=== PATIENT | male | born 1970 | race Caucasian/White ===

== ENCOUNTER 2016-12-02 14:11 | Inpatient (IN) ==
[2016-12-02 15:24] LABS: Basophils % 0.2 %; Hematocrit 45.6 % (37.5-50.1); Hemoglobin 14.8 g/dL (12.9-16.9); Immature Granulocytes % 0.7 % (0-4); Lymphocytes # 0.9 K/mcL (0.6-4.6); Lymphocytes % 4.5 %; Mean Corpuscular HGB Conc 32.5 g/dL (31.6-35.5); Mean Corpuscular Hemoglobin 28.4 pg (28.0-33.3); Mean Corpuscular Volume 87.4 fL (83.0-100.0); Mean Platelet Volume 9.3 fL (9.4-12.4); Monocytes # 1.6 K/mcL (0.0-1.3); Monocytes % 7.7 %; Neutrophils # 18.3 K/mcL (1.6-8.9); Platelet Count 222 K/mcL (140-400); Red Blood Count 5.22 M/mcL (4.19-5.50); Segmented Neutrophils % 86.9 %
[2016-12-02 15:30] LABS: INR 1.3
[2016-12-02 15:37] LABS: BUN/Creatinine Ratio 10 (6-26); Blood Urea Nitrogen 12 mg/dL (8-26); Calcium 8.6 mg/dL (8.6-10.8); Carbon Dioxide 24 mEq/L (19-29); Chloride 105 mEq/L (98-109); Glucose 110 mg/dL (70-99); Osmolality,Calculated 286 (280-300); Potassium 3.7 mEq/L (3.5-4.5); Sodium 138 mEq/L (136-145); eGFR For African Americans > 60 (> 60); eGFR For Non-African Americans > 60 (> 60)
[2016-12-02] MEDS ORDERED: 0.9 % Sodium Chloride 1,000 ML IVC ONE (16:07)
[2016-12-02] MEDS ORDERED: Levofloxacin 750 MG/150 ML 750 MG/150 ML BAG IVPB ONE (16:07)
[2016-12-02 16:08] LABS: Bilirubin,Urine Negative (Negative); Blood,Urine Trace (Negative); Clarity,Urine Cloudy (Clear); Color,Urine Yellow (Yellow); Glucose,Urine (UA) Normal (Normal); Ketones,Urine Negative (Negative); Leukocyte Esterase,Urine Large (Negative); Nitrite,Urine Negative (Negative); PH,Urine 6.5 pH Units (5.0-8.0); Protein,Urine Trace mg/dL (Neg-Trace); Specific Gravity,Urine 1.023 (1.010-1.025); Urobilinogen,Urine Normal (Normal)
--- NOTE | 2016-12-02 16:10 | Emergency Department Note ---
Disposition Clinical Impression: Urinary tract infection Qualifiers: Urinary tract infection type: site unspecified Hematuria presence: without hematuria Qualified Code(s): N39.0 - Urinary tract infection, site not specified Disposition: Admitted As Inpatient Condition: Fair Referrals: NO,PCP [Primary Care Provider] - Forms: ED Satisfaction Letter Time of Disposition: 16:35 Fever HPI - General Chief Complaint: ED Fever Stated Complaint: fevers// chills// SOB x2 weeks Source: patient, family Mode of arrival: private vehicle Limitations: no limitations Nursing Notes Reviewed: Yes Vital Signs Reviewed: Yes - History of Present Illness Pt Subjective Complaint: fever Onset (ago): week(s) (2 weeks. It came for a while then went away for a couple days then came back) Context: spontaneous Associated symptoms: Reports: chills, myalgias, nausea, vomiting (Occasional) Improves with: acetaminophen Worsens with: nothing Treatments prior to arrival fever: acetaminophen - Related Data Home Medications Medication Instructions Recorded Confirmed Aspirin/Acetaminophen/Caffeine 1 - 2 tab PO Q6H PRN 12/02/16 12/02/16 [Excedrin Migraine Caplet] Naproxen Sodium [Aleve] 220 mg PO Q12H PRN 12/02/16 12/02/16 Allergies Allergy/AdvReac Type Severity Reaction Status Date / Time No Known Allergies Allergy Verified 12/02/16 16:41 All systems ED: reviewed and negative except as stated. Constitutional: Reports: fever, chills ENT ED: Denies: ear pain, throat pain, congestion Cardiovascular: Denies: chest pain, palpitations Respiratory: Denies: cough, dyspnea, wheezes Gastrointestinal: Reports: nausea, vomiting. Denies: abdominal pain, diarrhea Genitourinary: Reports: other (Urinary incontinence). Denies: dysuria Musculoskeletal: Denies: back pain Integumentary: Denies: rash Neurological: Denies: headache Fever PMH - Past Medical History Medical history: Reports: no medical history Reports: UTI's/Kidney Infection Surgical history: Reports: no surgical history - Social History Smoking Status: Never smoker Alcohol use: Reports: rarely Drug use: Reports: none Physical Exam - General Limitations: no limitations General appearance: alert, in no apparent distress - Head Head exam: atraumatic, normocephalic - Eye Eye exam: Present: normal appearance, PERRL, EOMI - ENT ENT exam: normal exam, normal oropharynx, mucous membranes dry, TM's normal bilaterally, normal external ear exam - Neck Neck exam: Present: normal inspection, full ROM. Absent: meningismus - Chest Chest inspection: Present: normal inspection, symmetric chest wall rise. Absent : tenderness - Respiratory Respiratory exam: Present: normal lung sounds bilaterally. Absent: respiratory distress, wheezes - Cardiovascular Cardiovascular exam: Present: normal rhythm, tachycardia, normal heart sounds - Abdominal Exam Abdominal exam: Present: soft, Non-Tender, normal bowel sounds - Extremities Exam Extremities exam: Present: normal inspection, full ROM - Neurological Exam Neurological exam: Present: alert, oriented X3 - Psychiatric Psychiatric exam: Present: normal affect, normal mood - Skin Skin exam: Present: warm, dry. Absent: rash Course Course Narrative: Patient arrives with a report of fevers. He did not take with thermometer because he says his home monitor does not work. However he is been having chills. [place] like he was there for a number of days but then it went away but came back about 4 days ago. He is not describing any actual focus of infection. The only other real abnormality he has his urinary incontinence at times. Physical exam is unremarkable except for the presence of temperature and tachycardia. He does not appear toxic. Lab workup is initiated. We will check a urine. He has urine cup at the bedside which is very cloudy so I am not can await phenomena start him on Levaquin right away. Disposition will be based on diagnostic results and reevaluation. - Reevaluation(s) Reevaluation #1: White count is very elevated. Urinalysis is positive for urinary tract infection. Rest of the workup is okay. This is a 46-year-old male with UTI, high fever, high white count who is symptomatically getting worse as days go by. I gave him IV antibiotics already. I think he needs to be admitted to the hospital. Time: 16:27 - Consultations Consultation #1: Dr. Johnson, hospitalist - I discussed the case with the hospitalist. Talked about presentation and treatment to this point. He is accepted the patient for admission. Time: 16:34 Vital Signs Temperature 100.6 F H 12/02/16 14:13 Pulse Rate 113 12/02/16 14:13 Respiratory Rate 18 12/02/16 14:13 Blood Pressure 163/99 12/02/16 14:13 O2 Sat by Pulse Oximetry 95 12/02/16 14:13 Temperature 100.6 F H 12/02/16 14:13 Pulse Rate 113 12/02/16 14:13 Respiratory Rate 18 12/02/16 14:13 Blood Pressure 163/99 12/02/16 14:13 O2 Sat by Pulse Oximetry 95 12/02/16 14:45 Fever - Lab Data Lab results reviewed: Yes I reviewed the patient's lab results. Result diagrams: 12/02/16 15:05 12/02/16 15:05 Lab Results 12/02/16 12/02/16 12/02/16 Range/Units 15:05 15:05 15:05 WBC 21.1 H (4.3-11.1) K/mcL RBC 5.22 (4.19-5.50) M/mcL Hgb 14.8 (12.9-16.9) g/dL Hct 45.6 (37.5-50.1) % MCV 87.4 (83.0-100.0) fL MCH 28.4 (28.0-33.3) pg MCHC 32.5 (31.6-35.5) g/dL RDW 13.0 (11.5-14.5) % Plt Count 222 (140-400) K/mcL MPV 9.3 L (9.4-12.4) fL Immature Gran % 0.7 (0-4) % Seg Neutrophils % 86.9 % Lymphocytes % 4.5 % Monocytes % 7.7 % Eosinophils % 0.0 % Basophils % 0.2 % Neutrophils # 18.3 H (1.6-8.9) K/mcL Lymphocytes # 0.9 (0.6-4.6) K/mcL Monocytes # 1.6 H (0.0-1.3) K/mcL Eosinophils # 0.0 (0.0-0.6) K/mcL Basophils # 0.0 (0.0-0.2) K/mcL PT 14.0 H (9.4-12.1) Seconds INR 1.3 Sodium 138 (136-145) mEq/L Potassium 3.7 (3.5-4.5) mEq/L Chloride 105 (98-109) mEq/L Carbon Dioxide 24 (19-29) mEq/L BUN 12 (8-26) mg/dL Creatinine 1.17 (0.72-1.25) mg/dL Est GFR ( Amer) > 60 (> 60) Est GFR (Non-Af Amer) > 60 (> 60) BUN/Creatinine Ratio 10 (6-26) Glucose 110 H (70-99) mg/dL Calculated Osmolality 286 (280-300) Lactic Acid (0.5-2.2) mmol/L Calcium 8.6 (8.6-10.8) mg/dL Troponin I (0-0.03) ng/mL Urine Color (Yellow) Urine Clarity (Clear) Urine pH (5.0-8.0) pH Units Ur Specific [place] (1.010-1.025) Urine Protein (Neg-Trace) mg/dL Urine Glucose (UA) (Normal) mg/dL Urine Ketones (Negative) mg/dL Urine Blood (Negative) Urine Nitrite (Negative) Urine Bilirubin (Negative) Urine Urobilinogen (Normal) mg/dL Ur Leukocyte Esterase (Negative) Urine Microscopic RBC (0-3) per hpf Urine Microscopic WBC (0-3) per hpf Ur Squamous Epith Cells (None-Few) per lpf Ur Renal Epithelial Cell (None-Few) per hpf Urine Bacteria (None-Few) per hpf Urine Yeast (None Seen) per hpf Ur Culture Indicated? (NO) 12/02/16 12/02/16 12/02/16 Range/Units 15:05 15:05 15:57 WBC (4.3-11.1) K/mcL RBC (4.19-5.50) M/mcL Hgb (12.9-16.9) g/dL Hct (37.5-50.1) % MCV (83.0-100.0) fL MCH (28.0-33.3) pg MCHC (31.6-35.5) g/dL RDW (11.5-14.5) % Plt Count (140-400) K/mcL MPV (9.4-12.4) fL Immature Gran % (0-4) % Seg Neutrophils % % Lymphocytes % % Monocytes % % Eosinophils % % Basophils % % Neutrophils # (1.6-8.9) K/mcL Lymphocytes # (0.6-4.6) K/mcL Monocytes # (0.0-1.3) K/mcL Eosinophils # (0.0-0.6) K/mcL Basophils # (0.0-0.2) K/mcL PT (9.4-12.1) Seconds INR Sodium (136-145) mEq/L Potassium (3.5-4.5) mEq/L Chloride (98-109) mEq/L Carbon Dioxide (19-29) mEq/L BUN (8-26) mg/dL Creatinine (0.72-1.25) mg/dL Est GFR ( Amer) (> 60) Est GFR (Non-Af Amer) (> 60) BUN/Creatinine Ratio (6-26) Glucose (70-99) mg/dL Calculated Osmolality (280-300) Lactic Acid 1.2 (0.5-2.2) mmol/L Calcium (8.6-10.8) mg/dL Troponin I 0.02 (0-0.03) ng/mL Urine Color Yellow (Yellow) Urine Clarity Cloudy A (Clear) Urine pH 6.5 (5.0-8.0) pH Units Ur Specific [place] 1.023 (1.010-1.025) Urine Protein Trace (Neg-Trace) mg/dL Urine Glucose (UA) Normal (Normal) mg/dL Urine Ketones Negative (Negative) mg/dL Urine Blood Trace H (Negative) Urine Nitrite Negative (Negative) Urine Bilirubin Negative (Negative) Urine Urobilinogen Normal (Normal) mg/dL Ur Leukocyte Esterase Large H (Negative) Urine Microscopic RBC 3-5 H (0-3) per hpf Urine Microscopic WBC 50-100 H (0-3) per hpf Ur Squamous Epith Cells Few (None-Few) per lpf Ur Renal Epithelial Cell Few (None-Few) per hpf Urine Bacteria Many H (None-Few) per hpf Urine Yeast Moderate H (None Seen) per hpf Ur Culture Indicated? YES A (NO) - Radiology Data Radiology results reviewed: Yes I reviewed the patient's radiology results. - EKG Data EKG shows normal: sinus rhythm, axis, intervals, QRS complexes, ST-T waves Rate: tachycardia Interpretation: no acute changes (Except for tachycardia)
[2016-12-02 16:21] LABS: Squamous Epithelial Cell,Urine Few per lpf (None-Few); WBC,Urine 50-100 per hpf (0-3)
[2016-12-02 16:22] LABS: Bacteria,Urine Many per hpf (None-Few); Yeast,Urine Moderate per hpf (None Seen)
[2016-12-02 16:23] LABS: Renal Epithelial Cells,Urine Few per hpf (None-Few)
[2016-12-02] MEDS ORDERED: *HR* Morphine 2 MG/ML SYRINGE IVP PRN (17:19)
[2016-12-02] MEDS ORDERED: Naloxone 0.4 MG/ML INJ IVP PRN (17:19)
[2016-12-02] MEDS ORDERED: Ibuprofen 400 MG TABLET PO PRN (17:19)
[2016-12-02] MEDS ORDERED: Ondansetron 4 MG/2 ML VIAL IVP PRN (17:19)
--- NOTE | 2016-12-02 17:38 | Internal Med History&Physical ---
Date of Encounter: 12/02/16 Time of Encounter: 16:30 Assessment and Plan (1) Sepsis Current visit: Yes Status: Acute Patient presents with symptoms of fever and chills. He also reports some SOB and dizziness. Upon admission to the ED, the patient's WBC from initial lab draw was 21.1. His vital signs included HR of 113, RR of 18, and temp of 100.6F. During examination, patient felt very warm to the touch so rectal was ordered stat. Rectal temp was 104.3F. Patient meets sepsis criteria based on WBC , HR, and temp. Initial lactic acid was 1.2 and subsequent was 1.4. Sepsis protocol to be followed for this patient with orders fo timed lactic acids APTT/ INR, blood cultures, urine cultures, IV levaquin which was started in the ED and will be followed with IV levaquin 750 mg daily, IV bolus of 0.9 NS of 3L based on patient's weight as well as follow-up IV fluids of 125 mL/HR. Patient will also be placed on continuous cardiac telemetry based on his tachycardia. Follow-up labs ordered. Ibuprofen and acetaminophen to be alternated in fever control. Due to nausea and vomiting, patient will be NPO with diet advanced as tolerated. Patient to be monitored closely for signs of increased infection or cardiac/respiratory distress. Qualifiers: Sepsis type: sepsis due to unspecified organism Qualified Code(s): A41.9 - Sepsis, unspecified organism (2) Urinary tract infection Current visit: Yes Status: Acute Patient presents to ED with symptoms of urinary tract infection based on initial urinalysis taken. Patient reports having urinary urgency and incontinence over the past two weeks which coincides with his UTI symptomatology. Urine culture ordered. IV levaquin administered in the ED with continuation of IV levaquin 750 mg daily ordered. Follow-up labs ordered. Qualifiers: Urinary tract infection type: site unspecified Hematuria presence: without hematuria Qualified Code(s): N39.0 - Urinary tract infection, site not specified (3) Hypertension Current visit: Yes Status: Acute Patient presents with acute hypertension in ED upon admission. His initial BP was 163/99 and subsequent BP was 175/90. Patient denies history of hypertension but currently has BMI of 48.8 with risk factors. Will administer 5 mg hydralazine PRN if systolic BP >180 or diastolic BP >110. Will monitor patient and vital signs. Qualifiers: Hypertension type: unspecified Qualified Code(s): I10 - Essential (primary ) hypertension (4) Fever and chills Current visit: Yes Status: Acute Patient presents with complaint of fever and chills for the past two weeks that have come and gone. Symptoms worsened since Saturday prompting patient to come to the ED. Initial temp in ED was 100.6F orally. Patient felt much warmer on examination, so rectal temp taken and was 104.3F. Acetaminophen 650 mg PRN and Ibuprofen 400 mg PRN ordered and to be alternated in order to help control patient's fever. IV bolus of 3L to be administered per sepsis protocol, followed b 125 mL/HR. Will monitor patient and vital signs. (5) Nausea & vomiting Current visit: Yes Status: Acute Patient presents with acute nausea and vomiting that he reports began last Saturday when his symptoms of fever and chills worsened. IV Zofran ordered PRN. IV Protonix 40 mg daily ordered. Will keep patient NPO and advance diet as tolerated. Qualifiers: Vomiting type: cyclical vomiting Vomiting Intractability: non-intractable Qualified Code(s): G43.A0 - Cyclical vomiting, not intractable (6) Morbid obesity Current visit: Yes Status: Chronic Patient presents with morbid obesity based on current BMI of 48.8. Discussed importance of nutrition and exercise for patient in avoiding future health issues. Lipid panel ordered. A1c ordered. (7) DVT prophylaxis Current visit: Yes Status: Acute Patient to be placed on DVT prophylaxis due to admission protocol and current bed rest status. Heparin 5,000 units SQ Q8 ordered. Internal Medicine - H&P: HPI Chief complaint: Fever/chills Admitted From: Emergency Dept Plans for Post Hospital Care: Home History of present illness: Mr. Heller is a 46 year old male who presents from the ED with chief complaint of fever and chills on and off for the past two weeks. Patient also reports that he has been nauseated and has vomited several times since Saturday. He reports occasional SOB and a cough, urinary incontinence that comes and goes over the past two weeks, and dizziness. He denies any chest pain, abdominal pain , numbness, tingling, muscle weakness, changes in vision, pre-syncope, or syncope. Patient denies any medical or surgical history. Patient is morbidly obese. He denies tobacco, alcohol, and illicit drug use. Mr. Heller currently meets sepsis criteria based on his WBC of 21.1, HR of 113, and temperature of 104.3F taken rectally in ED. IV levaquin initiated in the ED with continuation of 750 mg IV levaquin daily. Initial lactic acid on admission to ED was 1.2. Follow-up lactic acid was 1.4. Timed lactic acids ordered. IV fluids of 3L bolus ordered per 30 mL/kg sepsis protocol with follow-up IV fluids of 0.9 NS 125 mL/HR. APTT and INR ordered. Patient's BP on admission to ED was 163/99 and follow-up BP was 175/90. Will order hydralazine 5 mg IVP Q6 for systolic BP > 180 or diastolic BP >110. Follow-up labs ordered. Urine culture and blood culture ordered stat. Patient is at high risk for further morbidity due to sepsis and will be admitted as inpatient with sepsis protocol followed. He will be placed on continuous cardiac telemetry due to current tachycardia. Patient will be monitored closely for signs of increased infection, fever, and cardiac/ respiratory distress. Time spent with patient >50 minutes. Past Med Surg Social Fam HX - Past Medical History Source: patient Medical history: no medical history - Past Surgical History Surgical History: no surgical history - Social History Smoking Status: Never smoker Smokeless Tobacco Status: No Alcohol use: none Drug use: none Current living situation: Home, With Family Activity Level: Independent ambulation Recent Out of Country Travel Within the Last 8 Weeks: No Exposure or Possible Exposure to Illness During Travel: No Internal Medicine - H&P: Meds Aspirin/Acetaminophen/Caffeine [Excedrin Migraine Caplet] 1 - 2 tab PO Q6H PRN 12/02/16 [History] Naproxen Sodium [Aleve] 220 mg PO Q12H PRN 12/02/16 [History] Allergies No Known Allergies Allergy (Verified 12/02/16 16:41) All Systems PM: A 10-system review of systems was performed and is negative for pertinent findings except as documented above in the HPI. - Constitutional Constitutional: as per HPI, chills, fever(s), no night sweats - EENT Eyes: no change in vision, no discharge, no pain, no photophobia Ears: no ear discharge, no ear pain, no tinnitus Nose, mouth and throat: no dysphagia, no nasal discharge, no neck pain, no sore throat - Breasts Breasts: as per HPI - Cardiovascular Cardiovascular ROS IM: as per HPI, dyspnea, no chest pain, no diaphoresis, no lightheadedness, no palpitations, no syncope - Respiratory Respiratory: as per HPI, dyspnea - Gastrointestinal Gastrointestinal: as per HPI, vomiting, no abdominal pain, no diarrhea, no hematemesis, no hematochezia, no melena - Genitourinary Genitourinary ROS male: as per HPI, difficulty urinating, urinary incontinence, urinary urgency - Musculoskeletal Musculoskeletal ROS IM: no numbness, no tingling - Integumentary Integumentary IM: no rash, no unusual bruising - Neurological Neurological ROS: no confusion, no convulsions, no focal weakness, no numbness, no tingling, no tremor(s) - Psychiatric Psychiatric: as per HPI - Endocrine Endocrine IM: as per HPI - Hematologic/Lymphatic Hematologic/Lymphatic: no easy bruising - Allergic/Immunologic Allergic/Immunologic: as per HPI - Constitutional Vitals: Temp Pulse Resp BP Pulse Ox 104.3 F H 113 16 175/90 95 12/02/16 17:18 12/02/16 14:13 12/02/16 17:18 12/02/16 17:18 12/02/16 14:45 General appearance: Present: cooperative, A&O X 3, morbidly obese, pleasant, no acute distress, answers questions appropriately - Head Head exam: Present: atraumatic, normocephalic - Eye Eye exam: Present: PERRL, conjuntiva pink, sclera anicteric Pupils: Present: PERRL - ENT ENT exam: Present: normal exam, normal external ear exam - Neck Neck exam general surgery: Present: supple, trachea midline. Absent: lymphadenopathy - Respiratory Respiratory exam: Present: CTAB. Absent: accessory muscle use, rales, rhonchi, wheezes - Cardiovascular Cardiovascular exam: Present: tachycardia - GI/Abdominal GI/Abdominal exam: Present: normal bowel sounds, soft, no peritoneal signs. Absent: distended, tenderness - Rectal Rectal exam: Present: deferred - Additional comments: exam deferred. - Extremities Exam Extremities exam: Present: warm, radial pulses palpable and symetrical. Absent : calf tenderness, cyanotic, pedal edema - Back Exam Back exam: Present: normal inspection - Neurological Exam Neurological exam: Present: CN II-XII intact, oriented X3, no focal deficits. Absent: pronater drift, facial droop, speech deficit - Psychiatric Psychiatric exam: Present: normal affect, normal mood - Skin Skin exam: Present: dry, intact Internal Med - H&P Results - Labs CBC & Chem 7: 12/02/16 15:05 12/02/16 15:05 - EKG Data EKG shows normal: sinus rhythm Rate: tachycardia - EKG Data Prior EKG available for review: no EKG comments: 12/02/16 17:53 EKG dated 12/02/16 shows sinus tachycardia. - Diagnostic Studies Chest x-ray Additional comments: Impressions Chest X-Ray 12/02/16 15:17 IMPRESSION: Negative portable study. D/ / Rosemary Piper Cha, MD / Rosemary Piper Cha, MD Interpreting Provider: Rosemary Piper Cha, MD
[2016-12-02 17:45] LABS: Activated Partial Thrombo Time 28.2 Seconds (26.0-36.0)
--- NOTE | 2016-12-02 17:55 | Event Note ---
Date of Encounter: 12/02/16 Time of Encounter: 17:54 Patient and examined with nurse practitioner. Urine tract infection with sepsis. Will give 30 ml/kg normal saline. Levofloxacin 750 mg IV daily. He is not hypotensive. No CVA tenderness. No history of kidney stones. No clinical symptoms of prostatitis.
[2016-12-02] MEDS: Acetaminophen 325 MG TABLET PO PRN (18:14)
[2016-12-02] MEDS: 0.9 % Sodium Chloride 1,000 ML IVC SCH ×5 (18:15→23:51)
[2016-12-02] MEDS: *HR* Heparin 5,000 UNIT/ML VIAL SQ SCH (23:58)
[2016-12-03 04:30] LABS: Basophils # 0.1 K/mcL (0.0-0.2); Basophils % 0.4 %; Eosinophils # 0.1 K/mcL (0.0-0.6); Eosinophils % 0.6 %; Hematocrit 43.5 % (37.5-50.1); Hemoglobin 13.6 g/dL (12.9-16.9); Immature Granulocytes % 0.5 % (0-4); Lymphocytes # 2.6 K/mcL (0.6-4.6); Lymphocytes % 15.6 %; Mean Corpuscular HGB Conc 31.3 g/dL (31.6-35.5); Mean Corpuscular Volume 89.5 fL (83.0-100.0); Mean Platelet Volume 9.6 fL (9.4-12.4); Monocytes # 2.1 K/mcL (0.0-1.3); Monocytes % 12.9 %; Neutrophils # 11.6 K/mcL (1.6-8.9); Platelet Count 185 K/mcL (140-400); Red Blood Count 4.86 M/mcL (4.19-5.50); Red Cell Distribution Width 13.2 % (11.5-14.5)
[2016-12-03 04:40] LABS: Hemoglobin A1C 5.4 %
[2016-12-03 04:47] LABS: Alanine Aminotransferase 23 Units/L (0-55); Albumin 2.7 g/dL (3.5-5.0); Albumin/Globulin Ratio 0.8 (1.1-2.2); Alkaline Phosphatase 74 Units/L (38-126); Aspartate Amino Transferase 21 Units/L (5-34); BUN/Creatinine Ratio 12 (6-26); Bilirubin,Direct 0.4 mg/dL (0.0-0.5); Bilirubin,Indirect 0.3 mg/dL (0.0-1.2); Bilirubin,Total 0.7 mg/dL (0.2-1.2); Blood Urea Nitrogen 12 mg/dL (8-26); Calcium 8.2 mg/dL (8.6-10.8); Carbon Dioxide 22 mEq/L (19-29); Chloride 109 mEq/L (98-109); Chol/HDL Ratio 7.1 (0-4.9); Cholesterol 113 mg/dL (< 200); Globulin 3.6 g/dL (2.4-3.5); Glucose 100 mg/dL (70-99); HDL Cholesterol 16 mg/dL (40-59); LDL Cholesterol,Calculated 69 mg/dL (0-99); Magnesium 1.9 mg/dL (1.6-2.6); Osmolality,Calculated 288 (280-300); Potassium 3.4 mEq/L (3.5-4.5); Sodium 139 mEq/L (136-145); Total Protein 6.3 g/dL (6.0-8.3); Triglycerides 140 mg/dL (< 150); eGFR For African Americans > 60 (> 60); eGFR For Non-African Americans > 60 (> 60)
--- NOTE | 2016-12-03 07:51 | Internal Med Progress Note ---
Date of Encounter: 12/03/16 Time of Encounter: 07:49 - Assessment and plan (1) Sepsis Current Visit: Yes Status: Acute Assessment and plan: Sepsis secondary to urinary tract infection Continue Levaquin day 2 IV fluids, urine cultures pending Morphine for pain Qualifiers: Sepsis type: sepsis due to unspecified organism Qualified Code(s): A41.9 - Sepsis, unspecified organism (2) Urinary tract infection Current Visit: Yes Status: Acute Assessment and plan: as stated above Qualifiers: Urinary tract infection type: site unspecified Hematuria presence: without hematuria Qualified Code(s): N39.0 - Urinary tract infection, site not specified (3) Hypertension Current Visit: Yes Status: Acute Assessment and plan: Accelerated hypertension Start lisinopril Order hydralazine IV as needed Qualifiers: Hypertension type: essential hypertension Qualified Code(s): I10 - Essential (primary) hypertension (4) Morbid obesity Current Visit: Yes Status: Chronic (5) Shoulder pain Current Visit: Yes Status: Acute Assessment and plan: Obtain x-rays Start meloxicam Consider further imaging Qualifiers: Chronicity: acute Laterality: right Qualified Code(s): M25.511 - Pain in right shoulder - Subjective Interval history: Complains of some dysuria, had fevers of 104 on 12/02/2016, complains of severe right shoulder pain. Denies any chest pain, shortness of breath, no abdominal pain, no diarrhea, no headaches - Constitutional Vitals: Temp Pulse Resp BP Pulse Ox 98.2 F 95 17 145/112 98 12/03/16 06:52 12/03/16 06:52 12/03/16 06:52 12/03/16 06:52 12/03/16 06:52 General appearance: Present: cooperative, A&O X 3, morbidly obese, pleasant, no acute distress, answers questions appropriately - Head Head exam: Present: atraumatic, normocephalic - Eye Eye exam: Present: PERRL, conjuntiva pink, sclera anicteric Pupils: Present: PERRL - Neck Neck exam general surgery: Present: supple, trachea midline. Absent: lymphadenopathy - Respiratory Respiratory exam: Present: decreased breath sounds, CTAB. Absent: accessory muscle use, rales, rhonchi, wheezes - Cardiovascular Cardiovascular exam: Present: RRR, +S1, +S2. Absent: diastolic murmur, gallop, rubs, systolic murmur - GI/Abdominal GI/Abdominal exam: Present: normal bowel sounds, soft, no peritoneal signs. Absent: distended, tenderness - Extremities Exam Extremities exam: Present: warm, radial pulses palpable and symetrical. Absent : calf tenderness, cyanotic, pedal edema Additional comments: Mild right shoulder tenderness, no warmth or erythema - Neurological Exam Neurological exam: Present: CN II-XII intact, oriented X3, no focal deficits. Absent: pronater drift, facial droop, speech deficit - Skin Skin exam: Present: dry, intact Internal Medicine: Result - Labs CBC & Chem 7: 12/03/16 03:45 12/03/16 03:45 Labs: Short CBC 12/03/16 Range/Units 03:45 WBC 16.5 H (4.3-11.1) K/mcL Hgb 13.6 (12.9-16.9) g/dL Hct 43.5 (37.5-50.1) % Plt Count 185 (140-400) K/mcL Neutrophils # 11.6 H (1.6-8.9) K/mcL BMP 12/03/16 03:45 Sodium 139 Potassium 3.4 L Chloride 109 Carbon Dioxide 22 BUN 12 Creatinine 1.04 Glucose 100 H Calcium 8.2 L Liver Function 12/03/16 Range/Units 03:45 Total Bilirubin 0.7 (0.2-1.2) mg/dL Direct Bilirubin 0.4 (0.0-0.5) mg/dL AST 21 (5-34) Units/L ALT 23 (0-55) Units/L Alkaline Phosphatase 74 (38-126) Units/L Albumin 2.7 L (3.5-5.0) g/dL - ABG Interpretation ABG results: PT/INR, D-dimer PT 14.0 Seconds (9.4-12.1) H 12/02/16 15:05 Consult Discharge Plan - Plan Referrals: NO,PCP [Primary Care Provider] -
[2016-12-03] MEDS ORDERED: Pantoprazole 40 MG VIAL IVP SCH (09:00)
[2016-12-03] MEDS: 0.9 % Sodium Chloride 1,000 ML IVC SCH ×2 (09:58→14:13)
[2016-12-03] MEDS: Levofloxacin 750 MG/150 ML 750 MG/150 ML BAG IVPB SCH (09:59)
[2016-12-03] MEDS: *HR* Heparin 5,000 UNIT/ML VIAL SQ SCH ×2 (10:03→18:13)
[2016-12-03] MEDS: *HR* HYDROcodone/Acet 5/325 mg TABLET PO PRN ×2 (10:10→14:15)
--- NOTE | 2016-12-03 12:18 | Electrocardiograph Report ---
[address] [address] Test Date: 2016-12-02 Pat Name: Michael Heller Department: 103 Room: 3A34 Gender: M [employer]: [employer] : 1970 Requested By: Cheo Valdez Order Number: [id number] Reading MD: Kasi Ace MD Measurements Intervals [place] Rate: 110 P: 21 VA: 140 QRS: 8 QRSD: 95 T: 13 QT: 334 QTc: 399 Interpretive Statements SINUS TACHYCARDIA Electronically Signed On 12-03-2016 12:16:31 EDT by Kasi Ace MD
[2016-12-03] MEDS: Acetaminophen 325 MG TABLET PO PRN (22:48)
[2016-12-04] MEDS: 0.9 % Sodium Chloride 1,000 ML IVC SCH ×2 (01:24→10:45)
[2016-12-04] MEDS: *HR* Heparin 5,000 UNIT/ML VIAL SQ SCH ×2 (01:30→08:23)
[2016-12-04 05:58] LABS: Hematocrit 43.6 % (37.5-50.1); Hemoglobin 13.9 g/dL (12.9-16.9); Mean Corpuscular HGB Conc 31.9 g/dL (31.6-35.5); Mean Corpuscular Hemoglobin 27.9 pg (28.0-33.3); Mean Corpuscular Volume 87.4 fL (83.0-100.0); Mean Platelet Volume 9.7 fL (9.4-12.4); Platelet Count 226 K/mcL (140-400); Red Blood Count 4.99 M/mcL (4.19-5.50); Red Cell Distribution Width 13.2 % (11.5-14.5)
[2016-12-04 06:05] LABS: BUN/Creatinine Ratio 14 (6-26); Blood Urea Nitrogen 15 mg/dL (8-26); Calcium 9.3 mg/dL (8.6-10.8); Carbon Dioxide 22 mEq/L (19-29); Chloride 112 mEq/L (98-109); Glucose 115 mg/dL (70-99); Osmolality,Calculated 294 (280-300); Potassium 3.8 mEq/L (3.5-4.5); Sodium 141 mEq/L (136-145); eGFR For African Americans > 60 (> 60); eGFR For Non-African Americans > 60 (> 60)
[2016-12-04] MEDS: Levofloxacin 750 MG/150 ML 750 MG/150 ML BAG IVPB SCH (08:23)
[2016-12-04] MEDS ORDERED: Ampicillin/Sulbactam 1,500 MG in 0.9 % Sodium Chloride Mini Bag 100 ML IVPB SCH (09:27)
--- NOTE | 2016-12-04 09:28 | Discharge Summary ---
Date of Encounter: 12/04/16 Time of Encounter: 09:23 - Discharge Diagnosis (1) Sepsis Priority: Primary Status: Acute Comments: Sepsis secondary to severe urinary tract infection, during culture is growing Streptococcus group C and a possible alpha streptococcus Final report of culture with sensitivity will be available tomorrow according to the microbiology lab staff Qualifiers: Sepsis type: sepsis due to unspecified organism Qualified Code(s): A41.9 - Sepsis, unspecified organism (2) Urinary tract infection Priority: Primary Status: Acute Qualifiers: Urinary tract infection type: site unspecified Hematuria presence: without hematuria Qualified Code(s): N39.0 - Urinary tract infection, site not specified (3) Hypertension Priority: Secondary Status: Acute Qualifiers: Hypertension type: essential hypertension Qualified Code(s): I10 - Essential (primary) hypertension (4) Morbid obesity Priority: Secondary Status: Chronic (5) Shoulder pain Priority: Secondary Status: Acute Comments: X-ray showed evidence of osteoarthritis in the right shoulder Qualifiers: Chronicity: acute Laterality: right Qualified Code(s): M25.511 - Pain in right shoulder - Discharge Medications Prescriptions: Amoxicillin/Clavulanate [Augmentin] 875 mg PO BIDWM #14 tablet Lisinopril [Zestril] 10 mg PO DAILY #30 tablet Meloxicam [Mobic] 15 mg PO DAILY PRN #15 tablet PRN Reason: Shoulder pain Omeprazole [PriLOSEC] 40 mg PO DAILY@0630 #30 capsule. Home Medications: Aspirin/Acetaminophen/Caffeine [Excedrin Migraine Caplet] 1 - 2 tab PO Q6H PRN 12/02/16 [History] Amoxicillin/Clavulanate [Augmentin] 875 mg PO BIDWM #14 tablet 12/04/16 [Rx] Lisinopril [Zestril] 10 mg PO DAILY #30 tablet 12/04/16 [Rx] Meloxicam [Mobic] 15 mg PO DAILY PRN #15 tablet 12/04/16 [Rx] Omeprazole [PriLOSEC] 40 mg PO DAILY@0630 #30 capsule. 12/04/16 [Rx] Allergies/Adverse Reactions: Allergies No Known Allergies Allergy (Verified 12/02/16 16:41) Date of admission: 12/02/16 17:19 Primary care physician: PCP NO - Patient Status Disposition: Home, Self-Care Condition: Good Overall status at discharge: patient is progressing back to baseline - Discharge Instructions Follow Up With: NO,PCP [Primary Care Provider] - Additional Instructions: Follow-up with a primary care physician within the next 7 days. Continue Augmentin for 7 days. Take meloxicam as needed, avoid Aleve while taking meloxicam. Okay to take Tylenol. Continue lisinopril for blood pressure control. Prescriptions will be sent to [facility] at [facility]. - Diet and Activity Activity: increase activity as tolerated Diet: regular diet Hospital course: Mr. Heller is a 46 year old male with no medical history who presented to the ED with a chief complaint of fever and chills on and off for the past two weeks. Patient also reported that he has been nauseated and has vomited several times since Saturday. He reported occasional SOB and a cough, urinary incontinence that comes and goes over the past two weeks, and dizziness. He denies any chest pain, abdominal pain, numbness, tingling, muscle weakness, changes in vision, pre-syncope, or syncope. Patient denied any medical or surgical history. WBC of 21.1, HR of 113, and temperature of 104.3F t Was started on IV levaquin Patient's BP on admission was 163/99 and follow-up BP was 175/90. His blood pressure remained elevated and was started on lisinopril. During his hospitalization the patient complained of right shoulder pain, an x- ray did not show any acute abnormality other than osteoarthritis. She responded well to meloxicam. The patient received 3 doses of Levaquin which improved his white blood cell count down to 13.6. He has not run any other fever. His urine culture was positive for Streptococcus group C which is usually treated with penicillin, second bacteria according to lab is alpha Streptococcus and a final report will be ready tomorrow. The patient was given the option to stay another day in the hospital until we have the final report but he prefers to go home as both a Streptococcus most of the times are sensitive to penicillins. He prefers to be discharged on Augmentin. - Time Spent with Patient Total time spent providing and/or coordinating discharge services: Greater than 30 minutes (40 min) - Constitutional Vitals: Temp Pulse Resp BP Pulse Ox 98.2 F 103 18 162/110 97 12/04/16 08:07 12/04/16 08:07 12/04/16 08:07 12/04/16 08:07 12/04/16 08:07 General appearance: Present: cooperative, A&O X 3, morbidly obese, pleasant, no acute distress, answers questions appropriately - Head Head exam: Present: atraumatic, normocephalic - Eye Eye exam: Present: PERRL, conjuntiva pink, sclera anicteric Pupils: Present: PERRL - Neck Neck exam general surgery: Present: supple, trachea midline. Absent: lymphadenopathy - Respiratory Respiratory exam: Present: CTAB. Absent: accessory muscle use, rales, rhonchi, wheezes - Cardiovascular Cardiovascular exam: Present: RRR, +S1, +S2. Absent: diastolic murmur, gallop, rubs, systolic murmur - GI/Abdominal GI/Abdominal exam: Present: normal bowel sounds, soft, no peritoneal signs. Absent: distended, tenderness - Extremities Exam Extremities exam: Present: warm, radial pulses palpable and symetrical. Absent : calf tenderness, cyanotic, pedal edema - Neurological Exam Neurological exam: Present: CN II-XII intact, oriented X3, no focal deficits. Absent: pronater drift, facial droop, speech deficit - Skin Skin exam: Present: dry, intact Additional comments: Mild right shoulder stiffness
[2016-12-04 10:44] VITALS: BP 167/104
== END 2016-12-04 11:57 | disposition home or self-care (01) | DRG 872 ==
LOC: 3ANU 14:11 → EMEROO 14:11 → 3ANU 18:09
PROVIDERS: ADMIT Family Medicine; ATTEND Internal Medicine

== ENCOUNTER 2017-02-04 08:53 | Observation (INO) ==
[2017-02-04] MEDS ORDERED: Ibuprofen 600 MG TABLET PO ONE (09:33)
--- NOTE | 2017-02-04 09:34 | Emergency Department Note ---
Disposition Clinical Impression: Shoulder pain, right Qualifiers: Chronicity: acute Qualified Code(s): M25.511 - Pain in right shoulder Septic arthritis Qualifiers: Septic arthritis location: shoulder Septic arthritis organism: due to unspecified organism Laterality: right Qualified Code(s): M00.9 - Pyogenic arthritis, unspecified Disposition: Admitted As Inpatient Condition: Fair Extremity Problem HPI - General Chief complaint: ED Extremity Problem,Nontraumatic Stated complaint: Right shoulder swelling/pain Time Seen by Provider: 02/04/17 09:07 Source: patient Mode of arrival: ambulatory Limitations: no limitations Nursing Notes Reviewed: Yes Vital Signs Reviewed: Yes - History of Present Illness HPI Narrative: 46-year-old male with a history of hypertension presents for evaluation of right shoulder pain. Patient states he has a remote history of right shoulder injury over 15 years ago. States that he is right-hand dominant as well as working with repetitive overhead lifting. Patient did have a recent consultation for urinary tract infection and subsequently had right shoulder pain at that time. Pain did improve but then noted that on Saturday he had increasing right shoulder pain. Localized to the anterior lateral aspect. No overlying redness. Did note swelling. States the pain is worse with lifting his arm above his head. Has not followed up with his primary care doctor or orthopedics. Denying any elbow or neck pain. States he took Tylenol prior to arrival without relief. Denies any chest pain or shortness of breath. Pain Scale: 5 - Related Data Home Medications Medication Instructions Recorded Confirmed Aspirin/Acetaminophen/Caffeine 1 - 2 tab PO Q6H PRN 12/02/16 02/04/17 [Excedrin Migraine Caplet] Previous Rx's Medication Instructions Recorded Lisinopril [Zestril] 10 mg PO DAILY #30 tablet 12/04/16 Omeprazole [PriLOSEC] 40 mg PO DAILY@0630 #30 capsule. 12/04/16 Allergies Allergy/AdvReac Type Severity Reaction Status Date / Time No Known Allergies Allergy Verified 12/02/16 16:41 All systems ED: reviewed and negative except as stated. Constitutional: Reports: as per HPI, fever (Subjective) Eyes: Reports: as per HPI ENT ED: Reports: as per HPI Cardiovascular: Reports: as per HPI. Denies: chest pain Respiratory: Reports: as per HPI. Denies: dyspnea Gastrointestinal: Reports: as per HPI. Denies: abdominal pain, nausea, vomiting Genitourinary: Reports: as per HPI Musculoskeletal: Reports: as per HPI. Denies: back pain, neck pain Integumentary: Reports: as per HPI Neurological: Reports: as per HPI Psychiatric: Reports: as per HPI Endocrine: Reports: as per HPI Hematological/Lymphatic: Reports: as per HPI Allergic/Immunologic: Reports: as per HPI Past Medical History - Past Medical History Medical history: Reports: hypertension Surgical history: Reports: no surgical history Psychiatric history: Reports: no psych history - Social History Smoking Status: Never smoker Smokeless Tobacco Status: No Alcohol use: Reports: rarely Drug use: Reports: none Physical Exam - General Limitations: no limitations General appearance: alert, in no apparent distress - Head Head exam: atraumatic, normocephalic, normal inspection - Eye Eye exam: Present: normal appearance, EOMI - ENT ENT exam: normal exam, mucous membranes moist - Neck Neck exam: Present: normal inspection - Chest Chest inspection: Present: normal inspection. Absent: symmetric chest wall rise - Respiratory Respiratory exam: Present: normal lung sounds bilaterally. Absent: respiratory distress - Cardiovascular Cardiovascular exam: Present: regular rate - Abdominal Exam Abdominal exam: Present: soft, Non-Tender - Extremities Exam Extremities exam: Present: normal inspection - Expanded Upper Extremity Exam Shoulder exam: Present: normal inspection, tenderness (Anteromedial aspect.), other (Decreased active range of motion with abduction greater than 15 degrees.) . Absent: abrasion, ecchymosis, deformity, crepitus, erythema Arm exam: Present: normal inspection. Absent: tenderness, swelling, abrasion Elbow exam: Present: normal inspection. Absent: tenderness Forearm/Wrist exam: Present: normal inspection. Absent: tenderness Hand exam: Present: normal inspection Neuromotor exam: Normal: wrist extension, thumb opposition, fingers 2-5 abduction Neurosensory exam: Normal: radial nerve Vascular exam: Normal: capillary refill, radial pulse - Expanded Lower Extremity Exam Neurovascular/Tendon exam: Present: normal capillary refill - Neurological Exam Neurological exam: Present: alert, oriented X3 - Skin Skin exam: Present: warm, dry, intact, normal color Course Course Narrative: Patient seen and examined. Patient appears nontoxic. Does have increasing pain with abduction of the right shoulder. There is no overlying erythema or redness. No appreciable swelling. Patient will get basic lab work including a sedimentation rate and advanced imaging if needed. - Reevaluation(s) Reevaluation #1: Patient's ESR was elevated. Patient received further laboratory testing. Patient will likely need an MR of the shoulder. Concerns about an inflammatory or infectious process. Time: 11:04 Reevaluation #2: Patient does have a leukocytosis consistent with inflammatory process. Patient was started on antibiotics concerns for septic arthritis. Time: 11:13 - Consultations Consultation #1: Spoke with Dr. Hinojosa who recommended IR for AC joint aspiration. Admit to the hospitalist. Time: 13:42 Consultation #2: Spoke with IR who state that they will evaluated the patient. Time: 13:47 Vital Signs Temperature 97.6 F 02/04/17 08:59 Pulse Rate 100 02/04/17 08:59 Respiratory Rate 16 02/04/17 08:59 Blood Pressure 143/90 02/04/17 08:59 O2 Sat by Pulse Oximetry 96 02/04/17 08:59 Temperature 98.2 F 02/04/17 15:46 Pulse Rate 85 02/04/17 15:46 Respiratory Rate 16 02/04/17 15:46 Blood Pressure 138/86 02/04/17 15:46 O2 Sat by Pulse Oximetry 97 02/04/17 15:46 Oxygen Delivery Oxygen Delivery Room Air Extremity Problem, Nontraumati - MDM Narrative Medical decision making narrative: 46-year-old male for evaluation of right shoulder pain. Patient initially had pain back in November with subsequent UTI. Since then the patient had some relief of symptoms but is worsened acutely in the past week. Notes that he has taking Tylenol for relief without significant benefit. Patient's history is concerning for possible septic arthritis. Patient would not move his arm without passive range of motion. Patient's denying any fevers but has been taking Tylenol. Patient had basic lab work which prompted an MRI looking for a possible septic arthritis. Spoke with orthopedics who recommended possible IR drainage of the AC joint. Patient was started on IV antibiotics covering for septic arthritis. Patient will be admitted to the hospitalist service for further intervention. - Lab Data Lab results reviewed: Yes I reviewed the patient's lab results. Result diagrams: 02/04/17 10:08 02/04/17 10:08 Lab Results 02/04/17 02/04/17 02/04/17 Range/Units 10:08 10:08 10:08 WBC 18.4 H (4.3-11.1) K/mcL RBC 5.07 (4.19-5.50) M/mcL Hgb 14.3 (12.9-16.9) g/dL Hct 45.0 (37.5-50.1) % MCV 88.8 (83.0-100.0) fL MCH 28.2 (28.0-33.3) pg MCHC 31.8 (31.6-35.5) g/dL RDW 14.4 (11.5-14.5) % Plt Count 332 (140-400) K/mcL MPV 9.2 L (9.4-12.4) fL Immature Gran % 0.8 (0-4) % Seg Neutrophils % 69.4 % Lymphocytes % 20.0 % Monocytes % 8.8 % Eosinophils % 0.6 % Basophils % 0.4 % Neutrophils # 12.7 H (1.6-8.9) K/mcL Lymphocytes # 3.7 (0.6-4.6) K/mcL Monocytes # 1.6 H (0.0-1.3) K/mcL Eosinophils # 0.1 (0.0-0.6) K/mcL Basophils # 0.1 (0.0-0.2) K/mcL ESR 104 H (0-10) mm/hr Sodium 139 (136-145) mEq/L Potassium 4.4 (3.5-4.5) mEq/L Chloride 105 (98-109) mEq/L Carbon Dioxide 25 (19-29) mEq/L BUN 18 (8-26) mg/dL Creatinine 1.25 (0.72-1.25) mg/dL Est GFR ( Amer) > 60 (> 60) Est GFR (Non-Af Amer) > 60 (> 60) BUN/Creatinine Ratio 14 (6-26) Glucose 104 H (70-99) mg/dL Calculated Osmolality 290 (280-300) Calcium 9.8 (8.6-10.8) mg/dL Total Bilirubin 0.7 (0.2-1.2) mg/dL AST 16 (5-34) Units/L ALT 17 (0-55) Units/L Alkaline Phosphatase 70 (38-126) Units/L Serum Total Protein 8.5 H (6.0-8.3) g/dL Albumin 3.5 (3.5-5.0) g/dL Globulin 5.0 H (2.4-3.5) g/dL Albumin/Globulin Ratio 0.7 L (1.1-2.2) Urine Color (Yellow) Urine Clarity (Clear) Urine pH (5.0-8.0) pH Units Ur Specific [place] (1.010-1.025) Urine Protein (Neg-Trace) mg/dL Urine Glucose (UA) (Normal) mg/dL Urine Ketones (Negative) mg/dL Urine Blood (Negative) Urine Nitrite (Negative) Urine Bilirubin (Negative) Urine Urobilinogen (Normal) mg/dL Ur Leukocyte Esterase (Negative) Urine Microscopic RBC (0-3) per hpf Urine Microscopic WBC (0-3) per hpf Urine Bacteria (None-Few) per hpf Ur Culture Indicated? (NO) 02/04/17 Range/Units 11:34 WBC (4.3-11.1) K/mcL RBC (4.19-5.50) M/mcL Hgb (12.9-16.9) g/dL Hct (37.5-50.1) % MCV (83.0-100.0) fL MCH (28.0-33.3) pg MCHC (31.6-35.5) g/dL RDW (11.5-14.5) % Plt Count (140-400) K/mcL MPV (9.4-12.4) fL Immature Gran % (0-4) % Seg Neutrophils % % Lymphocytes % % Monocytes % % Eosinophils % % Basophils % % Neutrophils # (1.6-8.9) K/mcL Lymphocytes # (0.6-4.6) K/mcL Monocytes # (0.0-1.3) K/mcL Eosinophils # (0.0-0.6) K/mcL Basophils # (0.0-0.2) K/mcL ESR (0-10) mm/hr Sodium (136-145) mEq/L Potassium (3.5-4.5) mEq/L Chloride (98-109) mEq/L Carbon Dioxide (19-29) mEq/L BUN (8-26) mg/dL Creatinine (0.72-1.25) mg/dL Est GFR ( Amer) (> 60) Est GFR (Non-Af Amer) (> 60) BUN/Creatinine Ratio (6-26) Glucose (70-99) mg/dL Calculated Osmolality (280-300) Calcium (8.6-10.8) mg/dL Total Bilirubin (0.2-1.2) mg/dL AST (5-34) Units/L ALT (0-55) Units/L Alkaline Phosphatase (38-126) Units/L Serum Total Protein (6.0-8.3) g/dL Albumin (3.5-5.0) g/dL Globulin (2.4-3.5) g/dL Albumin/Globulin Ratio (1.1-2.2) Urine Color Yellow (Yellow) Urine Clarity Cloudy A (Clear) Urine pH 5.5 (5.0-8.0) pH Units Ur Specific [place] 1.029 H (1.010-1.025) Urine Protein Trace (Neg-Trace) mg/dL Urine Glucose (UA) Normal (Normal) mg/dL Urine Ketones Negative (Negative) mg/dL Urine Blood Negative (Negative) Urine Nitrite Negative (Negative) Urine Bilirubin Negative (Negative) Urine Urobilinogen Normal (Normal) mg/dL Ur Leukocyte Esterase Large H (Negative) Urine Microscopic RBC 0-3 (0-3) per hpf Urine Microscopic WBC 50-100 H (0-3) per hpf Urine Bacteria Many H (None-Few) per hpf Ur Culture Indicated? YES A (NO) - Radiology Data Radiology results reviewed: Yes I reviewed the patient's radiology results. Shoulder X-Ray 02/04/17 09:18 IMPRESSION: No acute abnormality. Mild right AC joint osteoarthritis. D/ / Pawel Buchanan MD / Pawel Buchanan MD Interpreting Provider: Pawel Buchanan MD Shoulder MRI 02/04/17 10:26 IMPRESSION: 1. Findings are most consistent with an inflammatory arthropathy at the AC joint. Considerations include rheumatoid arthritis and septic arthritis. 2. Small interstitial tearing of the distal supraspinatus and subscapularis tendons. No complete rotator cuff tear, retraction or atrophy. 3. Mild subacromial-subdeltoid bursitis. 4. Mild glenohumeral degenerative change. D/ / 02/04/2017 13:28:49 Waldemar Pineda MD / kelli Interpreting Provider: Waldemar Pineda MD - EKG Data EKG attestation: Yes I reviewed and interpreted this EKG. EKG shows normal: sinus rhythm Rate: normal Rhythm: NSR Rarden/QRS: normal Q waves: III, aVR Interpretation: no acute changes Luis - Luis Situation: Demographics Background: Presenting Complaint Assessment: Vital Signs Recommendation: Barrier(s) to disposition, Recommendation based on pending studies, treatments, or consults Luis Report Given to: Dr. Ada Smith Repor Time: 14:08 Attestation Statement - Attestation Attestation: I examined this patient and my medical decision-making was reviewed with the Resident Physician. I agree with the documented findings, disposition and treatment plan as described except to the extent set forth below. [facility] ED with right shoulder pain. Patient states the pain started when he was diagnosed with a UTI a few weeks ago. 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 He states it got better but then it worsened again. Hurts to move it. No numbness tingling. Denies fever. Exam shows him in noted acute distress sitting on the edge of the bed. Unable to abduction shoulder. No swelling or erythema overlying the joint appreciated. Plan. X- ray and sedimentation rate. Sedimentation rate elevated over 100. Concern is the patient's symptoms started along with the urinary tract infection. We will check MRI. MRI shows a possible inflammatory versus infectious process in the before meals joint on the right. MiraLAX was started and orthopedics was consulted. Patient also has a UTI. Admitted to medicine. 35 minutes of critical care exclusive of separately billable procedures.
[2017-02-04] MEDS ORDERED: 0.9 % Sodium Chloride 1,000 ML IVC ONE ×2 (10:25→11:12)
[2017-02-04 10:38] LABS: Basophils # 0.1 K/mcL (0.0-0.2); Basophils % 0.4 %; Eosinophils # 0.1 K/mcL (0.0-0.6); Eosinophils % 0.6 %; Hemoglobin 14.3 g/dL (12.9-16.9); Immature Granulocytes % 0.8 % (0-4); Lymphocytes # 3.7 K/mcL (0.6-4.6); Mean Corpuscular HGB Conc 31.8 g/dL (31.6-35.5); Mean Corpuscular Hemoglobin 28.2 pg (28.0-33.3); Mean Corpuscular Volume 88.8 fL (83.0-100.0); Mean Platelet Volume 9.2 fL (9.4-12.4); Monocytes # 1.6 K/mcL (0.0-1.3); Monocytes % 8.8 %; Neutrophils # 12.7 K/mcL (1.6-8.9); Platelet Count 332 K/mcL (140-400); Red Blood Count 5.07 M/mcL (4.19-5.50); Red Cell Distribution Width 14.4 % (11.5-14.5); Segmented Neutrophils % 69.4 %
[2017-02-04 10:46] LABS: Alanine Aminotransferase 17 Units/L (0-55); Albumin 3.5 g/dL (3.5-5.0); Albumin/Globulin Ratio 0.7 (1.1-2.2); Alkaline Phosphatase 70 Units/L (38-126); Aspartate Amino Transferase 16 Units/L (5-34); BUN/Creatinine Ratio 14 (6-26); Bilirubin,Total 0.7 mg/dL (0.2-1.2); Blood Urea Nitrogen 18 mg/dL (8-26); Calcium 9.8 mg/dL (8.6-10.8); Carbon Dioxide 25 mEq/L (19-29); Chloride 105 mEq/L (98-109); Glucose 104 mg/dL (70-99); Osmolality,Calculated 290 (280-300); Potassium 4.4 mEq/L (3.5-4.5); Sodium 139 mEq/L (136-145); Total Protein 8.5 g/dL (6.0-8.3); eGFR For African Americans > 60 (> 60); eGFR For Non-African Americans > 60 (> 60)
[2017-02-04] MEDS ORDERED: *HR* HYDROmorphone (PF) 1 MG/ML SYRINGE IVP ONE (11:05)
[2017-02-04] MEDS ORDERED: Vancomycin 2,000 MG in D5% in Water 500 ML IVPB ONE (11:11)
[2017-02-04 11:44] LABS: Bilirubin,Urine Negative (Negative); Blood,Urine Negative (Negative); Clarity,Urine Cloudy (Clear); Color,Urine Yellow (Yellow); Glucose,Urine (UA) Normal (Normal); Ketones,Urine Negative (Negative); Leukocyte Esterase,Urine Large (Negative); Nitrite,Urine Negative (Negative); PH,Urine 5.5 pH Units (5.0-8.0); Protein,Urine Trace mg/dL (Neg-Trace); Specific Gravity,Urine 1.029 (1.010-1.025); Urobilinogen,Urine Normal (Normal)
[2017-02-04 11:58] LABS: Bacteria,Urine Many per hpf (None-Few); RBC,Urine 0-3 per hpf (0-3); WBC,Urine 50-100 per hpf (0-3)
--- NOTE | 2017-02-04 15:37 | Orthopedic Consult Note ---
Date of Encounter: 02/04/17 Time of Encounter: 15:27 Assessment and Plan (1) Shoulder pain, right Current Visit: Yes Status: Acute Right shoulder Pain Patient has been examined in ED, labs reviewed. Case discussed and reviewed with . WBC elevated to 18, ESR elevated at 104. Urine UA indicates cultures needed. At this time, because of his significant pain, tenderness to AC Joint, MRI findings, leukocytosis and recent hospitalization for Sepsis and UTI, IR to aspirate AC joint to the best of their ability today. Cultures to be obtained, along with gram stain and cell count. Pending IR aspiration and results, orthopedic plan will be to treat with IV antibiotics. No surgical intervention recommended at this time. Patient has no evidence of glenohumeral septic arthritis. Will monitor vitals and labs, along with leukocytosis. Plan for shoulder rest, ROM as tolerated. Plan discussed and reviewed with the patient and his in ED. Qualifiers: Chronicity: acute Qualified Code(s): M25.511 - Pain in right shoulder (2) Leukocytosis Current Visit: Yes Status: Acute Possibly related to right shoulder pain, ruling out AC arthropathy versus AC septic arthritis, VERSUS UTI - awaiting cultures. Qualifiers: Leukocytosis type: unspecified Qualified Code(s): D72.829 - Elevated white blood cell count, unspecified (3) Hypertension Current Visit: No Status: Chronic Qualifiers: Hypertension type: essential hypertension Qualified Code(s): I10 - Essential (primary) hypertension (4) Morbid obesity Current Visit: No Status: Chronic History of Present Illness Chief complaint: Right Shoulder Pain HPI: Mr. Heller is a 46 year old male, A&O x3, presented to [facility] ED due to severe Right shoulder pain, and an inability to move his right shoulder due to intensity of pain. Patient states pain is 10/10 with PROM and AROM of the Right shoulder. Pain resides along top portion of shoulder over AC joint. Patient denies N/T, or recent trauma. He hospitalized in November for Sepsis and UTI, he states his right shoulder started bothering him upon admission in November, but had resolved by the time he was discharged. He did completed IV antibiotic treatment and was discharged on oral antibiotics at that time. His more recent right shoulder pain started on Saturday, and gradually worsened over the weekend. Swelling has also worsened along top portion of right shoulder , with noted tenderness to AC joint. He states he may have injured the right shoulder as far back as 15 years ago, but has never had any issues with it. 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 He admits to intermittent fever and general malaise, but otherwise denies N/V, CP, cough, SOB. XRAYS compared from November, and are relatively unchanged. IMPRESSION: 1. No acute osseous abnormality of the right shoulder. 2. Mild osteoarthritis of the AC joint. MRI Right Shoulder: MR/MR shoulder RT wo/w con IMPRESSION: 1. Findings are most consistent with an inflammatory arthropathy at the AC joint. Considerations include rheumatoid arthritis and septic arthritis. 2. Small interstitial tearing of the distal supraspinatus and subscapularis tendons. No complete rotator cuff tear, retraction or atrophy. 3. Mild subacromial-subdeltoid bursitis. 4. Mild glenohumeral degenerative change. EXAM: Right Shoulder Swelling to anterior shoulder, no erythema noted. No ecchymosis or obvious deformity. Prominent AC joint noted, no fluctuance noted. No identifiable abscess noted. Warmth noted to anterior shoulder. Significant tenderness to AC joint, along anterior deltoid and trapezius. Pendulum swings tolerated well, minimal pain. PROM limited with forward flexion secondary to pain, AROM limited in all directions secondary to pain Strength - limited by AROM limitations NV intact. LAB Past Med Surg Social Fam HX - Past Medical History Medical history: hypertension Psychiatric history: no psych history - Past Surgical History Surgical History: no surgical history - Social History Smoking Status: Never smoker Smokeless Tobacco Status: No Alcohol use: rarely Drug use: none - Family History Mother Hx Family Cardiac Disorders: Yes (HTN) Hx Family Respiratory Disorders: Yes (asthma) Hx Family Endocrine Disorder: Yes (DM) Medications and Allergies Aspirin/Acetaminophen/Caffeine [Excedrin Migraine Caplet] 1 - 2 tab PO Q6H PRN 12/02/16 [History] Lisinopril [Zestril] 10 mg PO DAILY #30 tablet 12/04/16 [Rx] Omeprazole [PriLOSEC] 40 mg PO DAILY@0630 #30 capsule. 12/04/16 [Rx] 3 Allergy/AdvReac Type Severity Reaction Status Date / Time No Known Allergies Allergy Verified 12/02/16 16:41 All Systems Reviewed: A 10-system review of systems was performed and is negative for pertinent findings except as documented above in the HPI. - Constitutional Constitutional: as per HPI - Cardiovascular Cardiovascular: no chest pain, no dyspnea, no syncope - Respiratory Respiratory: no cough, no dyspnea - Musculoskeletal Musculoskeletal: as per HPI Physical Exam - Constitutional Vitals: Temp Pulse Resp BP Pulse Ox 97.6 F 89 16 161/91 99 02/04/17 08:59 02/04/17 13:40 02/04/17 15:21 02/04/17 15:21 02/04/17 13:40 General appearance IM: A&O X 3, pleasant, obese Exam: See H&P - Results - Labs Result Diagrams: 02/04/17 10:08 02/04/17 10:08 Labs: Abnormal lab results WBC 18.4 K/mcL (4.3-11.1) H 02/04/17 10:08 MPV 9.2 fL (9.4-12.4) L 02/04/17 10:08 Neutrophils # 12.7 K/mcL (1.6-8.9) H 02/04/17 10:08 Monocytes # 1.6 K/mcL (0.0-1.3) H 02/04/17 10:08 ESR 104 mm/hr (0-10) H 02/04/17 10:08 Glucose 104 mg/dL (70-99) H 02/04/17 10:08 Serum Total Protein 8.5 g/dL (6.0-8.3) H 02/04/17 10:08 Globulin 5.0 g/dL (2.4-3.5) H 02/04/17 10:08 Albumin/Globulin Ratio 0.7 (1.1-2.2) L 02/04/17 10:08 Urine Clarity Cloudy (Clear) A 02/04/17 11:34 Ur Specific [place] 1.029 (1.010-1.025) H 02/04/17 11:34 Ur Leukocyte Esterase Large (Negative) H 02/04/17 11:34 Urine Microscopic WBC 50-100 per hpf (0-3) H 02/04/17 11:34 Urine Bacteria Many per hpf (None-Few) H 02/04/17 11:34 Ur Culture Indicated? YES (NO) A 02/04/17 11:34 All other labs normal. - Diagnostic results Shoulder x-ray: report reviewed, image reviewed Shoulder MRI: report reviewed, image reviewed Consult Discharge Plan - Plan Referrals: NONE,PCP [Primary Care Provider] -
--- NOTE | 2017-02-04 16:17 | IR Procedure Note ---
Date of procedure: 02/04/17 Consent Obtained: Verbal consent, Written consent Timeout: Correct patient and procedure verified, Correct site verified, Time out performed, Skin prep completed Local anesthetic: Lidocaine 1% Indications: R AC joint arthritis Procedure Performed: US guided aspiration Site/Technique: R AC joint Results/Findings: trace serosanguinous fluid aspirated after lavage Estimated blood loss (cc): 0 Complications: None; Tolerated procedure well Post Procedure Treatment Plan: fluid studies pending
[2017-02-04] MEDS ORDERED: *HR* Morphine 2 MG/ML SYRINGE IVP PRN (17:04)
[2017-02-04] MEDS ORDERED: Ibuprofen 400 MG TABLET PO PRN (17:04)
[2017-02-04] MEDS ORDERED: Naloxone 0.4 MG/ML INJ IVP PRN (17:04)
--- NOTE | 2017-02-04 18:38 | Event Note ---
Date of Encounter: 02/04/17 Time of Encounter: 18:33 46-year-old male patient with past medical history of hypertension and recent hospitalization for urinary tract infection and sepsis presented to ER with complaints of right shoulder pain and swelling. Worse with passive and active range of motion. X-rays did not show any acute abnormality. MRI of the right shoulder shows findings suggestive of inflammatory arthropathy with consideration for rheumatoid arthritis and septic arthritis. On examination, tenderness noted at right shoulder especially of the acromioclavicular joint. Heart sounds are normal. Breath sounds are normal and clear to auscultation. Labs show white count of 18.4. BUN is 18, creatinine is 1.25, ESR is 104. Reviewing patient's history, he had a urine culture positive for strep group C and Aerococcus in November. Possible septic arthritis involving the right shoulder joint: IR has aspirated the joint. Will follow as an we will fluid analysis and culture results. We will treat with ceftriaxone. No recent trauma or puncture wounds so do not have strong suspicion for MRSA at this time. We will follow culture results and adjust antibiotics accordingly. Essential hypertension: Make adjustments as needed. blood pressure is elevated likely due to pain. We will continue home medications and adjust accordingly.
--- NOTE | 2017-02-04 19:17 | Internal Med History&Physical ---
<Qing Arevalo M - Last Filed: 02/04/17 22:32> Date of Encounter: 02/04/17 Time of Encounter: 19:11 Assessment and Plan (1) Shoulder pain, right Current visit: Yes Status: Acute Patient presented with severe right shoulder pain, restricting movement secondary to pain. Xray showed no acute osseoud abnormality and mild osteoarthritis of AC joint. MR of right shoulder showed inflammatory arthropathy of AC joint suggesting rheumatoid arthritis vs. septic arthritis. ESR was elevated to 104 and WBC elevated to 18.9. Blood cultures sent. Ortho was consulted and recommended IR for aspiration. Patient had aspiration of synovial fluid in IR and preliminary results show no WBC or bacteria, so low suspicion for septic arthritis. Tylenol and norco for pain control. Will need outpatient follow up with ortho. Qualifiers: Chronicity: acute Qualified Code(s): M25.511 - Pain in right shoulder (2) Urinary tract infection Current visit: Yes Status: Acute Patient with elevated WBC of 18.9. UA was suspicious for UTI. URine culture and blood cultures sent. Iv rocephin daily. Qualifiers: Urinary tract infection type: site unspecified Hematuria presence: without hematuria Qualified Code(s): N39.0 - Urinary tract infection, site not specified (3) Hypertension Current visit: Yes Status: Chronic Fairly controlled since arrival. Continue home dose of lisinopril. Qualifiers: Hypertension type: essential hypertension Qualified Code(s): I10 - Essential (primary) hypertension (4) Morbid obesity Current visit: Yes Status: Chronic BMI of 50. Nutrition consult ordered to recommend lifestyle changes. (5) DVT prophylaxis Current visit: Yes Status: Acute anti-embolic stockings Heparin SQ tID Internal Medicine - H&P: HPI Chief complaint: right shoulder pain Admitted From: Emergency Dept Plans for Post Hospital Care: Home History of present illness: Mr. Heller is a 46 year old male with hypertension and obesity presented to the emergency department today with complaints of severe right shoulder pain. Patient reports that he first noted some aching in his right shoulder on Saturday but still had full range of motion. His pain progressed until yesterday he was unable to lift his arm above his shoulder height due to the pain and now has minimal movement due to pain. Patient has recent hospitalization for UTI and sepsis, and reportedly at that time he had right shoulder pain that resolved after being on antibiotics. Patient denies any fever, chills, sweats, body aches. He denies any nausea, vomiting, abdominal pain or diarrhea. Evaluation in emergency department revealed elevated white blood cell count of 18.9, elevated sedimentation rate of 104. Right shoulder x-ray showed no acute osseous abnormality is mild osteoarthritis of the before meals joint. MRI of the right shoulder showed inflammatory arthropathy at before meals joint with possibility of rheumatoid arthritis versus septic arthritis. Urinalysis was suspicious for UTI. Patient was afebrile with stable vital signs. He was given 2 L bolus, Rocephin. Ortho and IR were consulted and he has aspiration of joint for culture and analysis. On exam, patient alert and oriented in no acute distress. He has reduced active and passive ROM of his right shoulder due to pain. Heart has regular rate and rhythm, lungs clear bilaterally to auscultation. Past Med Surg Social Fam HX - Past Medical History Medical history: hypertension Psychiatric history: no psych history - Past Surgical History Surgical History: no surgical history - Social History Smoking Status: Never smoker Smokeless Tobacco Status: No Alcohol use: rarely Drug use: none - Family History Mother Hx Family Cardiac Disorders: Yes (HTN) Hx Family Respiratory Disorders: Yes (asthma) Hx Family Endocrine Disorder: Yes (DM) Father Hx Family Cardiac Disorders: Yes (CHF,HTN) Hx Family Endocrine Disorder: Yes (DM) Internal Medicine - H&P: Meds Aspirin/Acetaminophen/Caffeine [Excedrin Migraine Caplet] 1 - 2 tab PO Q6H PRN 12/02/16 [History] Lisinopril [Zestril] 10 mg PO DAILY #30 tablet 12/04/16 [Rx] Omeprazole [PriLOSEC] 40 mg PO DAILY@0630 #30 capsule. 12/04/16 [Rx] 3 Allergy/AdvReac Type Severity Reaction Status Date / Time No Known Allergies Allergy Verified 12/02/16 16:41 All Systems PM: A 10-system review of systems was performed and is negative for pertinent findings except as documented above in the HPI. - Constitutional Constitutional: no chills, no fever(s), no night sweats - EENT Eyes: no change in vision, no discharge, no pain, no photophobia Ears: no ear discharge, no ear pain, no tinnitus Nose, mouth and throat: no dysphagia, no nasal discharge, no neck pain, no sore throat - Cardiovascular Cardiovascular ROS IM: no chest pain, no diaphoresis, no dyspnea, no lightheadedness, no palpitations, no syncope - Respiratory Respiratory: no cough, no dyspnea, no wheezing, no excessive phlegm production - Gastrointestinal Gastrointestinal: no abdominal pain, no diarrhea, no hematemesis, no hematochezia, no melena, no nausea, no vomiting - Musculoskeletal Musculoskeletal ROS IM: arthralgias (right shoulder), joint swelling (right shoulder), limited range of motion (of right shoulder secondary to pain), no numbness, no tingling - Integumentary Integumentary IM: no rash, no unusual bruising - Neurological Neurological ROS: no confusion, no convulsions, no focal weakness, no numbness, no tingling, no tremor(s) - Hematologic/Lymphatic Hematologic/Lymphatic: no easy bruising - Constitutional Vitals: Temp Pulse Resp BP Pulse Ox 98.2 F 85 16 138/86 97 02/04/17 15:46 02/04/17 15:46 02/04/17 15:46 02/04/17 15:46 02/04/17 15:46 General appearance: Present: A&O X 3, morbidly obese, pleasant, no acute distress - Head Head exam: Present: atraumatic, normocephalic - Eye Eye exam: Present: PERRL, conjuntiva pink, sclera anicteric Pupils: Present: PERRL - Neck Neck exam general surgery: Present: supple, trachea midline. Absent: lymphadenopathy - Respiratory Respiratory exam: Present: CTAB. Absent: accessory muscle use, rales, rhonchi, wheezes - Cardiovascular Cardiovascular exam: Present: RRR, +S1, +S2. Absent: diastolic murmur, gallop, rubs, systolic murmur - GI/Abdominal GI/Abdominal exam: Present: normal bowel sounds, soft, no peritoneal signs. Absent: distended, tenderness - Extremities Exam Extremities exam: Present: warm, radial pulses palpable and symmetrical. Absent : calf tenderness, cyanotic, full ROM (right shoulder secondary to pain), pedal edema - Neurological Exam Neurological exam: Present: CN II-XII intact, oriented X3, no focal deficits. Absent: pronater drift, facial droop, speech deficit - Skin Skin exam: Present: dry, intact Internal Med - H&P Results - Labs CBC & Chem 7: 02/04/17 10:08 02/04/17 10:08 Labs: All Lab Results (24 Hours) 02/04/17 02/04/17 02/04/17 Range/Units 10:08 10:08 10:08 WBC 18.4 H (4.3-11.1) K/mcL RBC 5.07 (4.19-5.50) M/mcL Hgb 14.3 (12.9-16.9) g/dL Hct 45.0 (37.5-50.1) % MCV 88.8 (83.0-100.0) fL MCH 28.2 (28.0-33.3) pg MCHC 31.8 (31.6-35.5) g/dL RDW 14.4 (11.5-14.5) % Plt Count 332 (140-400) K/mcL MPV 9.2 L (9.4-12.4) fL Immature Gran % 0.8 (0-4) % Seg Neutrophils % 69.4 % Lymphocytes % 20.0 % Monocytes % 8.8 % Eosinophils % 0.6 % Basophils % 0.4 % Neutrophils # 12.7 H (1.6-8.9) K/mcL Lymphocytes # 3.7 (0.6-4.6) K/mcL Monocytes # 1.6 H (0.0-1.3) K/mcL Eosinophils # 0.1 (0.0-0.6) K/mcL Basophils # 0.1 (0.0-0.2) K/mcL ESR 104 H (0-10) mm/hr Sodium 139 (136-145) mEq/L Potassium 4.4 (3.5-4.5) mEq/L Chloride 105 (98-109) mEq/L Carbon Dioxide 25 (19-29) mEq/L BUN 18 (8-26) mg/dL Creatinine 1.25 (0.72-1.25) mg/dL Est GFR ( Amer) > 60 (> 60) Est GFR (Non-Af Amer) > 60 (> 60) BUN/Creatinine Ratio 14 (6-26) Glucose 104 H (70-99) mg/dL Calculated Osmolality 290 (280-300) Calcium 9.8 (8.6-10.8) mg/dL Total Bilirubin 0.7 (0.2-1.2) mg/dL AST 16 (5-34) Units/L ALT 17 (0-55) Units/L Alkaline Phosphatase 70 (38-126) Units/L Serum Total Protein 8.5 H (6.0-8.3) g/dL Albumin 3.5 (3.5-5.0) g/dL Globulin 5.0 H (2.4-3.5) g/dL Albumin/Globulin Ratio 0.7 L (1.1-2.2) Urine Color (Yellow) Urine Clarity (Clear) Urine pH (5.0-8.0) pH Units Ur Specific [place] (1.010-1.025) Urine Protein (Neg-Trace) mg/dL Urine Glucose (UA) (Normal) mg/dL Urine Ketones (Negative) mg/dL Urine Blood (Negative) Urine Nitrite (Negative) Urine Bilirubin (Negative) Urine Urobilinogen (Normal) mg/dL Ur Leukocyte Esterase (Negative) Urine Microscopic RBC (0-3) per hpf Urine Microscopic WBC (0-3) per hpf Urine Bacteria (None-Few) per hpf Ur Culture Indicated? (NO) 02/04/17 Range/Units 11:34 WBC (4.3-11.1) K/mcL RBC (4.19-5.50) M/mcL Hgb (12.9-16.9) g/dL Hct (37.5-50.1) % MCV (83.0-100.0) fL MCH (28.0-33.3) pg MCHC (31.6-35.5) g/dL RDW (11.5-14.5) % Plt Count (140-400) K/mcL MPV (9.4-12.4) fL Immature Gran % (0-4) % Seg Neutrophils % % Lymphocytes % % Monocytes % % Eosinophils % % Basophils % % Neutrophils # (1.6-8.9) K/mcL Lymphocytes # (0.6-4.6) K/mcL Monocytes # (0.0-1.3) K/mcL Eosinophils # (0.0-0.6) K/mcL Basophils # (0.0-0.2) K/mcL ESR (0-10) mm/hr Sodium (136-145) mEq/L Potassium (3.5-4.5) mEq/L Chloride (98-109) mEq/L Carbon Dioxide (19-29) mEq/L BUN (8-26) mg/dL Creatinine (0.72-1.25) mg/dL Est GFR ( Amer) (> 60) Est GFR (Non-Af Amer) (> 60) BUN/Creatinine Ratio (6-26) Glucose (70-99) mg/dL Calculated Osmolality (280-300) Calcium (8.6-10.8) mg/dL Total Bilirubin (0.2-1.2) mg/dL AST (5-34) Units/L ALT (0-55) Units/L Alkaline Phosphatase (38-126) Units/L Serum Total Protein (6.0-8.3) g/dL Albumin (3.5-5.0) g/dL Globulin (2.4-3.5) g/dL Albumin/Globulin Ratio (1.1-2.2) Urine Color Yellow (Yellow) Urine Clarity Cloudy A (Clear) Urine pH 5.5 (5.0-8.0) pH Units Ur Specific [place] 1.029 H (1.010-1.025) Urine Protein Trace (Neg-Trace) mg/dL Urine Glucose (UA) Normal (Normal) mg/dL Urine Ketones Negative (Negative) mg/dL Urine Blood Negative (Negative) Urine Nitrite Negative (Negative) Urine Bilirubin Negative (Negative) Urine Urobilinogen Normal (Normal) mg/dL Ur Leukocyte Esterase Large H (Negative) Urine Microscopic RBC 0-3 (0-3) per hpf Urine Microscopic WBC 50-100 H (0-3) per hpf Urine Bacteria Many H (None-Few) per hpf Ur Culture Indicated? YES A (NO) - Diagnostic Studies Chest x-ray Additional comments: Other Images Additional comments: Shoulder X-Ray 02/04/17 09:18 IMPRESSION: No acute abnormality. Mild right AC joint osteoarthritis. D/ / Pawel Buchanan MD / Pawel Buchanan MD Interpreting Provider: Pawel Buchanan MD Shoulder MRI 02/04/17 10:26 IMPRESSION: 1. Findings are most consistent with an inflammatory arthropathy at the AC joint. Considerations include rheumatoid arthritis and septic arthritis. 2. Small interstitial tearing of the distal supraspinatus and subscapularis tendons. No complete rotator cuff tear, retraction or atrophy. 3. Mild subacromial-subdeltoid bursitis. 4. Mild glenohumeral degenerative change. D/ / 02/04/2017 13:28:49 Waldemar Pineda MD / kelli Interpreting Provider: Waldemar Pineda MD <[email or web address] - Last Filed: 02/05/17 17:36> Date of Encounter: 02/04/17 Time of Encounter: 19:00 Internal Medicine - H&P: HPI History of present illness: Mr. Heller is a 46 year old male All Systems PM: A 10-system review of systems was performed and is negative for pertinent findings except as documented above in the HPI. - Constitutional Vitals: Temp Pulse Resp BP Pulse Ox 98.1 F 99 18 144/89 97 02/05/17 14:00 02/05/17 14:00 02/05/17 14:00 02/05/17 14:00 02/05/17 14:00 Internal Med - H&P Results - Labs CBC & Chem 7: 02/05/17 05:57 02/05/17 05:57 Labs: Short CBC 02/05/17 Range/Units 05:57 WBC 16.8 H (4.3-11.1) K/mcL Hgb 13.3 (12.9-16.9) g/dL Hct 42.1 (37.5-50.1) % Plt Count 305 (140-400) K/mcL Neutrophils # 11.0 H (1.6-8.9) K/mcL BMP 02/05/17 05:57 Sodium 141 Potassium 4.3 Chloride 110 H Carbon Dioxide 22 BUN 18 Creatinine 1.18 Glucose 98 Calcium 9.3 - Attending Attestation I examined this patient and my medical decision-making was reviewed with the nurse practitioner. I agree with the documented history of present illness, review of systems, past medical, surgical social and family histories and examination findings, disposition and treatment plan as described above except to any changes set forth below. 46-year-old male patient with past medical history of hypertension and recent hospitalization for urinary tract infection and sepsis presented to ER with complaints of right shoulder pain and swelling. Worse with passive and active range of motion. X-rays did not show any acute abnormality. MRI of the right shoulder shows findings suggestive of inflammatory arthropathy with consideration for rheumatoid arthritis and septic arthritis. On examination, tenderness noted at right shoulder especially of the acromioclavicular joint. Heart sounds are normal. Breath sounds are normal and clear to auscultation. Labs show white count of 18.4. BUN is 18, creatinine is 1.25, ESR is 104. Reviewing patient's history, he had a urine culture positive for strep group C and Aerococcus in November. Possible septic arthritis involving the right shoulder joint: IR has aspirated the joint. Will follow as an we will fluid analysis and culture results. We will treat with ceftriaxone. No recent trauma or puncture wounds so do not have strong suspicion for MRSA at this time. We will follow culture results and adjust antibiotics accordingly. Essential hypertension: Make adjustments as needed. blood pressure is elevated likely due to pain. We will continue home medications and adjust accordingly.
[2017-02-04] MEDS: 0.9 % Sodium Chloride 1,000 ML IVC SCH (19:20)
[2017-02-04] MEDS: *HR* HYDROcodone/Acet 5/325 mg TABLET PO PRN (19:52)
[2017-02-05] MEDS: *HR* HYDROcodone/Acet 5/325 mg TABLET PO PRN (01:08)
[2017-02-05] MEDS: 0.9 % Sodium Chloride 1,000 ML IVC SCH ×2 (05:12→18:02)
[2017-02-05] MEDS: *HR* Heparin 5,000 UNIT/ML VIAL SQ SCH ×3 (05:12→21:21)
[2017-02-05 06:47] LABS: BUN/Creatinine Ratio 15 (6-26); Blood Urea Nitrogen 18 mg/dL (8-26); Calcium 9.3 mg/dL (8.6-10.8); Carbon Dioxide 22 mEq/L (19-29); Chloride 110 mEq/L (98-109); Glucose 98 mg/dL (70-99); Osmolality,Calculated 294 (280-300); Potassium 4.3 mEq/L (3.5-4.5); Sodium 141 mEq/L (136-145); eGFR For African Americans > 60 (> 60); eGFR For Non-African Americans > 60 (> 60)
[2017-02-05 06:59] LABS: Basophils # 0.1 K/mcL (0.0-0.2); Basophils % 0.5 %; Eosinophils # 0.3 K/mcL (0.0-0.6); Eosinophils % 1.7 %; Hematocrit 42.1 % (37.5-50.1); Hemoglobin 13.3 g/dL (12.9-16.9); Immature Granulocytes % 0.7 % (0-4); Lymphocytes # 3.8 K/mcL (0.6-4.6); Lymphocytes % 22.4 %; Mean Corpuscular HGB Conc 31.6 g/dL (31.6-35.5); Mean Corpuscular Hemoglobin 28.5 pg (28.0-33.3); Mean Corpuscular Volume 90.3 fL (83.0-100.0); Mean Platelet Volume 9.4 fL (9.4-12.4); Monocytes # 1.5 K/mcL (0.0-1.3); Monocytes % 9.1 %; Platelet Count 305 K/mcL (140-400); Red Blood Count 4.66 M/mcL (4.19-5.50); Red Cell Distribution Width 14.6 % (11.5-14.5); Segmented Neutrophils % 65.6 %
--- NOTE | 2017-02-05 07:28 | Electrocardiograph Report ---
[facility] Test Date: 2017-02-04 Pat Name: Michael Heller Department: [id number] Room: 3A46 Gender: M History Faculty Member: : 1970 Requested By: Edgardo Nunez Order Number: [id number] Reading MD: Stacey Soliz DO Measurements Intervals [place] Rate: 94 P: 24 AL: 152 QRS: 10 QRSD: 77 T: 6 QT: 328 QTc: 380 Interpretive Statements SINUS RHYTHM Electronically Signed On 02-05-2017 7:27:27 EDT by Stacey Soliz DO
--- NOTE | 2017-02-05 12:18 | Orthopedics Progress Note ---
Date of Encounter: 02/05/17 Time of Encounter: 12:16 - Assessment and Plan (1) Shoulder pain, right Current Visit: Yes Status: Acute Right shoulder Pain Patient was examined in ED yesterday labs reviewed. Case discussed and reviewed with . WBC decreased to 16, ESR elevated at <120, CRP elevated on 02/05 labs. Urine UA indicates cultures needed. Awaiting culture results IR aspirated AC joint 02/04 - Prelim Cultures, no growth, no WBC, no bacteria. Patient has no evidence of glenohumeral septic arthritis. Will monitor vitals and labs, along with leukocytosis. Plan for shoulder rest, ROM as tolerated. PT/OT for shoulder. Plan to f/up outpatient for AC arthritis and arthopathy flare up Plan discussed and reviewed with the patient Continue antibiotics for suspected UTI and leukocytosis per hospitalist recommendation Qualifiers: Chronicity: acute Qualified Code(s): M25.511 - Pain in right shoulder (2) Leukocytosis Current Visit: Yes Status: Acute Possibly related to right shoulder pain, ruling out AC arthropathy versus AC septic arthritis, VERSUS UTI - awaiting cultures. Qualifiers: Leukocytosis type: unspecified Qualified Code(s): D72.829 - Elevated white blood cell count, unspecified (3) Hypertension Current Visit: Yes Status: Chronic Qualifiers: Hypertension type: essential hypertension Qualified Code(s): I10 - Essential (primary) hypertension (4) Morbid obesity Current Visit: Yes Status: Chronic Subjective Principal diagnosis: Right Shoulder Pain Interval history: DAy #1 in Hospital Right Shoulder Pain - Pain has improved, ROM has improved. Still with stiffness and pain with overhead activities. No erythema or obvious joint effusion noted. NV intact distally. On IV Rocephin currently, awaiting final culture results for Right AC joint from 02/04, and urine culture results. Objective Vital signs: Vital Signs Temp Pulse Resp BP Pulse Ox 02/05/17 10:54 98.4 F 101 18 134/83 94 02/05/17 06:43 98.3 F 84 16 123/81 94 02/05/17 03:30 98.3 F 97 14 149/84 96 02/05/17 01:08 98.0 F 100 14 148/100 95 02/04/17 19:41 98.5 F 108 14 143/88 95 02/04/17 15:46 98.2 F 85 16 138/86 97 02/04/17 15:21 16 161/91 Intake and Output 02/04/17 02/05/17 02/05/17 23:59 07:59 15:59 Intake Total 0 / 0 1000 / 1000 480 / 480 Output Total 100 / 100 800 / 800 300 / 300 Balance -100 / -100 200 / 200 180 / 180 Intake: IV Fluids 1000 / 1000 0.9 % Sodium Chloride 1, 1000 / 1000 000 ML @ 100 mls/hr IVC . Q10H [facility] Rx#:[id number] Oral 0 / 0 0 / 0 480 / 480 Output: Urine 100 / 100 800 / 800 300 / 300 Other: Meal Breakfast Percent of Meal Consumed 100% Weight 160.526 kg Patient Weight 02/05/17 23:59 Weight 160.526 kg Incision: clean and dry - Labs CBC & BMP: 02/05/17 05:57 02/05/17 05:57 Labs: Abnormal lab results WBC 16.8 K/mcL (4.3-11.1) H 02/05/17 05:57 RDW 14.6 % (11.5-14.5) H 02/05/17 05:57 Neutrophils # 11.0 K/mcL (1.6-8.9) H 02/05/17 05:57 Monocytes # 1.5 K/mcL (0.0-1.3) H 02/05/17 05:57 ESR >= 130 mm/hr (0-10) H 02/05/17 05:57 Chloride 110 mEq/L (98-109) H 02/05/17 05:57 C-Reactive Protein 69 mg/L (Less than 5) H 02/05/17 05:57 Serum Total Protein 8.5 g/dL (6.0-8.3) H 02/04/17 10:08 Globulin 5.0 g/dL (2.4-3.5) H 02/04/17 10:08 Albumin/Globulin Ratio 0.7 (1.1-2.2) L 02/04/17 10:08 Urine Clarity Cloudy (Clear) A 02/04/17 11:34 Ur Specific [place] 1.029 (1.010-1.025) H 02/04/17 11:34 Ur Leukocyte Esterase Large (Negative) H 02/04/17 11:34 Urine Microscopic WBC 50-100 per hpf (0-3) H 02/04/17 11:34 Urine Bacteria Many per hpf (None-Few) H 02/04/17 11:34 Ur Culture Indicated? YES (NO) A 02/04/17 11:34 Consult Discharge Plan - Plan Referrals: Patricia Hidalgo PRIVACY MANAGER [Advanced Practice Nurse] -
[2017-02-05] MEDS ORDERED: Ketorolac 15 MG/ML VIAL IVP PRN (12:41)
--- NOTE | 2017-02-05 17:28 | Internal Med Progress Note ---
Date of Encounter: 02/05/17 Time of Encounter: 15:25 - Subjective Interval history: Pt seen and examined with family present at bedside. Resting in chair and reports of improvement in right shoulder pain however still not able to move the shoulder. Denies any urinary symptoms at this time. Assessment/Plan: (1) Shoulder pain, right Current visit: Yes Status: Acute s/p IR guided aspiration of right shoulder no growth reported ortho evaluation noted and appreciated outpatient follow up recommended PT/OT for shoulder pain control with toradol prn Qualifiers: Chronicity: acute Qualified Code(s): M25.511 - Pain in right shoulder (2) Urinary tract infection Current visit: Yes Status: Acute continue IV abx Qualifiers: Urinary tract infection type: site unspecified Hematuria presence: without hematuria Qualified Code(s): N39.0 - Urinary tract infection, site not specified (3) Hypertension Current visit: Yes Status: Chronic BP within acceptable range continue home medications Qualifiers: Hypertension type: essential hypertension Qualified Code(s): I10 - Essential (primary) hypertension (4) Morbid obesity Current visit: Yes Status: Chronic BMI of 50. Nutrition consult ordered to recommend lifestyle changes. (5) DVT prophylaxis Current visit: Yes Status: Acute anti-embolic stockings Heparin SQ tID - Constitutional Vitals: Temp Pulse Resp BP Pulse Ox 98.1 F 99 18 144/89 97 02/05/17 14:00 02/05/17 14:00 02/05/17 14:00 02/05/17 14:00 02/05/17 14:00 General appearance: Present: A&O X 3, morbidly obese, pleasant, no acute distress - Head Head exam: Present: atraumatic, normocephalic - Eye Eye exam: Present: conjuntiva pink, sclera anicteric - Respiratory Respiratory exam: Absent: respiratory distress, wheezes - Cardiovascular Cardiovascular exam: Present: RRR, +S1, +S2. Absent: diastolic murmur, gallop, rubs, systolic murmur - GI/Abdominal GI/Abdominal exam: Present: normal bowel sounds, soft, no peritoneal signs. Absent: distended, tenderness - Extremities Exam Extremities exam: Present: pedal edema, warm, radial pulses palpable and symmetrical. Absent: calf tenderness (right shoulder tenderness) - Neurological Exam Neurological exam: Present: alert, oriented X3 - Psychiatric Psychiatric exam: Present: normal affect, normal mood Internal Medicine: Result - Labs CBC & Chem 7: 02/05/17 05:57 02/05/17 05:57 Labs: Short CBC 02/05/17 Range/Units 05:57 WBC 16.8 H (4.3-11.1) K/mcL Hgb 13.3 (12.9-16.9) g/dL Hct 42.1 (37.5-50.1) % Plt Count 305 (140-400) K/mcL Neutrophils # 11.0 H (1.6-8.9) K/mcL BMP 02/05/17 05:57 Sodium 141 Potassium 4.3 Chloride 110 H Carbon Dioxide 22 BUN 18 Creatinine 1.18 Glucose 98 Calcium 9.3 Consult Discharge Plan - Plan Referrals: Patricia Hidalgo, MOTOR BOSS [Advanced Practice Nurse] -
[2017-02-06] MEDS: *HR* Heparin 5,000 UNIT/ML VIAL SQ SCH ×3 (05:44→21:12)
[2017-02-06 07:22] LABS: Basophils # 0.1 K/mcL (0.0-0.2); Basophils % 0.6 %; Eosinophils # 0.2 K/mcL (0.0-0.6); Eosinophils % 1.7 %; Hemoglobin 12.7 g/dL (12.9-16.9); Immature Granulocytes % 0.3 % (0-4); Immature Platelets 1.6 % (1.1-6.1); Lymphocytes # 2.8 K/mcL (0.6-4.6); Lymphocytes % 23.1 %; Mean Corpuscular HGB Conc 32.6 g/dL (31.6-35.5); Mean Corpuscular Hemoglobin 29.1 pg (28.0-33.3); Mean Corpuscular Volume 89.2 fL (83.0-100.0); Mean Platelet Volume 9.4 fL (9.4-12.4); Monocytes % 8.1 %; Platelet Count 306 K/mcL (140-400); Red Blood Count 4.37 M/mcL (4.19-5.50); Red Cell Distribution Width 14.3 % (11.5-14.5); Segmented Neutrophils % 66.2 %
[2017-02-06] MEDS: 0.9 % Sodium Chloride 1,000 ML IVC SCH (07:22)
[2017-02-06 07:35] LABS: BUN/Creatinine Ratio 16 (6-26); Blood Urea Nitrogen 21 mg/dL (8-26); Calcium 9.4 mg/dL (8.6-10.8); Carbon Dioxide 23 mEq/L (19-29); Chloride 110 mEq/L (98-109); Glucose 101 mg/dL (70-99); Osmolality,Calculated 295 (280-300); Phosphorous 4.8 mg/dL (2.3-4.7); Potassium 4.1 mEq/L (3.5-4.5); Sodium 141 mEq/L (136-145); eGFR For African Americans > 60 (> 60); eGFR For Non-African Americans 58 (> 60)
[2017-02-06 12:18] LABS: Source,Synovial Fluid RIGHT SHOULDER
[2017-02-06 12:19] LABS: Appearance,Synovial Fluid Clear (Clear-Hazy)
[2017-02-06 12:24] LABS: Color,Synovial Fluid Colorless (Straw)
--- NOTE | 2017-02-06 12:30 | Orthopedics Progress Note ---
Date of Encounter: 02/06/17 Time of Encounter: 12:27 - Assessment and Plan (1) Shoulder pain, right Current Visit: Yes Status: Acute Right shoulder Pain Case discussed and reviewed with . WBC decreased to 12, ESR elevated at <120 02/05 - awaiting repeat labs, CRP elevated on 02/05 labs. Urine UA indicates cultures - Negative. IR aspirated AC joint 02/04 - Finals Cultures, no growth, no WBC, no bacteria. Patient has no evidence of glenohumeral septic arthritis. Will monitor vitals and labs, along with leukocytosis. Plan for shoulder rest, ROM as tolerated. PT/OT for shoulder. Plan to f/up outpatient for AC arthritis and arthopathy flare up Plan discussed and reviewed with the patient Continue antibiotics for suspected UTI per hospitalist. Stable for D/C from orthopedic standpoint. Qualifiers: Chronicity: acute Qualified Code(s): M25.511 - Pain in right shoulder (2) Leukocytosis Current Visit: Yes Status: Acute Possibly related to right shoulder pain, ruling out AC arthropathy versus AC septic arthritis, VERSUS UTI - awaiting cultures. Qualifiers: Leukocytosis type: unspecified Qualified Code(s): D72.829 - Elevated white blood cell count, unspecified (3) Hypertension Current Visit: Yes Status: Chronic Qualifiers: Hypertension type: essential hypertension Qualified Code(s): I10 - Essential (primary) hypertension (4) Morbid obesity Current Visit: Yes Status: Chronic Subjective Principal diagnosis: Right Shoulder Pain Interval history: DAy #1 in Hospital Right Shoulder Pain - Pain has improved, ROM has improved. Still with stiffness and pain with overhead activities. No erythema or obvious joint effusion noted. NV intact distally. On IV Rocephin currently, awaiting final culture results for Right AC joint from 02/04, and urine culture results. Objective Vital signs: Vital Signs Temp Pulse Resp BP Pulse Ox 02/06/17 11:17 98.3 F 97 18 123/78 96 02/06/17 08:00 96 02/06/17 06:53 98.6 F 86 16 107/75 96 02/06/17 05:47 96 143/84 02/06/17 04:05 98.5 F 94 14 157/100 95 02/06/17 00:47 98.6 F 91 14 149/94 95 02/05/17 20:22 98.8 F 103 14 152/91 98 02/05/17 14:00 98.1 F 99 18 144/89 97 Intake and Output 02/05/17 02/06/17 02/06/17 23:59 07:59 15:59 Intake Total 360 / 360 1340 / 1340 120 / 120 Output Total 450 / 450 1150 / 1150 225 / 225 Balance -90 / -90 190 / 190 -105 / -105 Intake: IV Fluids 1100 / 1100 0.9 % Sodium Chloride 1, 1000 / 1000 000 ML @ 75 mls/hr IVC . [id number] [facility] Rx#: [id number] Rocephin 1,000 MG In 100 / 100 Dextrose 5% (Minibag+) 100 ML 100 ML @ 200 mls/ hr IVPB DAILY [facility] Rx#: [id number] Oral 360 / 360 240 / 240 120 / 120 Output: Urine 450 / 450 1150 / 1150 225 / 225 Other: Meal Dinner Breakfast Percent of Meal Consumed 100% 100% # Voids 2 Weight 160.662 kg 160.662 kg Patient Weight 02/06/17 23:59 Weight 160.662 kg - Labs CBC & BMP: 02/06/17 06:53 02/06/17 06:53 Labs: Abnormal lab results WBC 12.0 K/mcL (4.3-11.1) H 02/06/17 06:53 Hgb 12.7 g/dL (12.9-16.9) L 02/06/17 06:53 ESR >= 130 mm/hr (0-10) H 02/05/17 05:57 Chloride 110 mEq/L (98-109) H 02/06/17 06:53 Creatinine 1.32 mg/dL (0.72-1.25) H 02/06/17 06:53 Est GFR (Non-Af Amer) 58 (> 60) L 02/06/17 06:53 Glucose 101 mg/dL (70-99) H 02/06/17 06:53 Phosphorus 4.8 mg/dL (2.3-4.7) H 02/06/17 06:53 C-Reactive Protein 69 mg/L (Less than 5) H 02/05/17 05:57 Serum Total Protein 8.5 g/dL (6.0-8.3) H 02/04/17 10:08 Globulin 5.0 g/dL (2.4-3.5) H 02/04/17 10:08 Albumin/Globulin Ratio 0.7 (1.1-2.2) L 02/04/17 10:08 Urine Clarity Cloudy (Clear) A 02/04/17 11:34 Ur Specific [place] 1.029 (1.010-1.025) H 02/04/17 11:34 Ur Leukocyte Esterase Large (Negative) H 02/04/17 11:34 Urine Microscopic WBC 50-100 per hpf (0-3) H 02/04/17 11:34 Urine Bacteria Many per hpf (None-Few) H 02/04/17 11:34 Ur Culture Indicated? YES (NO) A 02/04/17 11:34 - VTE Documentation of Mechanical Device: Graduated compression elastic hosiery Consult Discharge Plan - Plan Referrals: Patricia Hidalgo, BINDER SORTER [Advanced Practice Nurse] -
--- NOTE | 2017-02-06 15:08 | Internal Med Progress Note ---
Date of Encounter: 02/06/17 Time of Encounter: 15:03 - Subjective Interval history: Pt seen and examined at bedside. Resting in chair and reports of improvement in right shoulder pain. Denies any urinary symptoms at this time. Assessment/Plan: (1) Shoulder pain, right Current visit: Yes Status: Acute s/p IR guided aspiration of right shoulder no growth reported ortho evaluation noted and appreciated outpatient follow up recommended PT/OT for shoulder Qualifiers: Chronicity: acute Qualified Code(s): M25.511 - Pain in right shoulder (2) Urinary tract infection Current visit: Yes Status: Acute continue IV abx Qualifiers: Urinary tract infection type: site unspecified Hematuria presence: without hematuria Qualified Code(s): N39.0 - Urinary tract infection, site not specified (3) Hypertension Current visit: Yes Status: Chronic BP within acceptable range continue home medications noted to be hypertensive overnight will add Hydralazine 10mg IVP q6h PRN SBP>150 Qualifiers: Hypertension type: essential hypertension Qualified Code(s): I10 - Essential (primary) hypertension (4) Morbid obesity Current visit: Yes Status: Chronic BMI of 50. Nutrition consult ordered to recommend lifestyle changes. (5) DVT prophylaxis Current visit: Yes Status: Acute anti-embolic stockings Heparin SQ tID (6) MERVAT Current visit: Yes Status: Acute Likely secondary to NSAID therapy and hypertension holding NSAIDs at this time, continue IV fluids will closely monitor renal function - Constitutional Vitals: Temp Pulse Resp BP Pulse Ox 98.8 F 94 18 131/78 97 02/06/17 14:54 02/06/17 14:54 02/06/17 14:54 02/06/17 14:54 02/06/17 14:54 General appearance: Present: A&O X 3, morbidly obese, pleasant, no acute distress - Head Head exam: Present: atraumatic, normocephalic - Eye Eye exam: Present: conjuntiva pink, sclera anicteric - Respiratory Respiratory exam: Absent: respiratory distress, wheezes - Cardiovascular Cardiovascular exam: Present: RRR, +S1, +S2. Absent: diastolic murmur, gallop, rubs, systolic murmur - GI/Abdominal GI/Abdominal exam: Present: normal bowel sounds, soft, no peritoneal signs. Absent: distended, tenderness - Extremities Exam Extremities exam: Present: warm, radial pulses palpable and symmetrical. Absent : calf tenderness - Neurological Exam Neurological exam: Present: alert, oriented X3 Internal Medicine: Result - Labs CBC & Chem 7: 02/06/17 06:53 02/06/17 06:53 Labs: Short CBC 02/06/17 Range/Units 06:53 WBC 12.0 H (4.3-11.1) K/mcL Hgb 12.7 L (12.9-16.9) g/dL Hct 39.0 (37.5-50.1) % Plt Count 306 (140-400) K/mcL Neutrophils # 8.0 (1.6-8.9) K/mcL BMP 02/06/17 06:53 Sodium 141 Potassium 4.1 Chloride 110 H Carbon Dioxide 23 BUN 21 Creatinine 1.32 H Glucose 101 H Calcium 9.4 - VTE Documentation of Mechanical Device: Graduated compression elastic hosiery Consult Discharge Plan - Plan Referrals: Patricia Hidalgo, METAL BURNISHER [Advanced Practice Nurse] -
[2017-02-06] MEDS: *HR* HYDROcodone/Acet 5/325 mg TABLET PO PRN (21:11)
[2017-02-07] MEDS: *HR* Heparin 5,000 UNIT/ML VIAL SQ SCH (05:34)
[2017-02-07 06:24] LABS: Basophils # 0.1 K/mcL (0.0-0.2); Basophils % 0.4 %; Eosinophils # 0.3 K/mcL (0.0-0.6); Eosinophils % 2.3 %; Hematocrit 40.2 % (37.5-50.1); Hemoglobin 12.6 g/dL (12.9-16.9); Immature Granulocytes % 0.4 % (0-4); Lymphocytes # 2.5 K/mcL (0.6-4.6); Mean Corpuscular HGB Conc 31.3 g/dL (31.6-35.5); Mean Corpuscular Hemoglobin 27.9 pg (28.0-33.3); Mean Corpuscular Volume 88.9 fL (83.0-100.0); Mean Platelet Volume 9.1 fL (9.4-12.4); Monocytes # 0.9 K/mcL (0.0-1.3); Monocytes % 8.2 %; Neutrophils # 7.5 K/mcL (1.6-8.9); Platelet Count 295 K/mcL (140-400); Red Blood Count 4.52 M/mcL (4.19-5.50); Red Cell Distribution Width 14.1 % (11.5-14.5); Segmented Neutrophils % 66.7 %
[2017-02-07 07:16] LABS: BUN/Creatinine Ratio 13 (6-26); Blood Urea Nitrogen 17 mg/dL (8-26); Calcium 9.4 mg/dL (8.6-10.8); Carbon Dioxide 24 mEq/L (19-29); Chloride 108 mEq/L (98-109); Glucose 94 mg/dL (70-99); Magnesium 1.9 mg/dL (1.6-2.6); Osmolality,Calculated 293 (280-300); Potassium 4.2 mEq/L (3.5-4.5); Sodium 141 mEq/L (136-145); eGFR For African Americans > 60 (> 60); eGFR For Non-African Americans 59 (> 60)
[2017-02-07 07:38] VITALS: BP 136/88
[2017-02-07] MEDS: *HR* HYDROcodone/Acet 5/325 mg TABLET PO PRN (08:33)
--- NOTE | 2017-02-07 09:50 | Discharge Summary ---
Date of Encounter: 02/07/17 Time of Encounter: 09:15 - Discharge Diagnosis (1) Urinary tract infection Priority: Secondary Status: Acute Qualifiers: Urinary tract infection type: site unspecified Hematuria presence: without hematuria Qualified Code(s): N39.0 - Urinary tract infection, site not specified (2) Hypertension Priority: Secondary Status: Chronic Qualifiers: Hypertension type: essential hypertension Qualified Code(s): I10 - Essential (primary) hypertension (3) Morbid obesity Priority: Secondary Status: Chronic (4) DVT prophylaxis Priority: Secondary Status: Acute (5) Shoulder pain Priority: Primary Status: Acute Qualifiers: Chronicity: acute Laterality: right Qualified Code(s): M25.511 - Pain in right shoulder - Discharge Medications Prescriptions: Ciprofloxacin HCl [Cipro] 500 mg PO BID #6 tablet Docusate [Colace] 100 mg PO BID PRN #10 PRN Reason: Constipation HYDROcodone/Acet 5/325 mg [[place] 5-325 mg] 1 tab PO Q6H PRN #15 tab PRN Reason: Severe Pain Home Medications: Aspirin/Acetaminophen/Caffeine [Excedrin Migraine Caplet] 1 - 2 tab PO Q6H PRN 12/02/16 [History] Lisinopril [Zestril] 10 mg PO DAILY #30 tablet 12/04/16 [Rx] Omeprazole [PriLOSEC] 40 mg PO DAILY@0630 #30 capsule. 12/04/16 [Rx] Ciprofloxacin HCl [Cipro] 500 mg PO BID #6 tablet 02/07/17 [Rx] Docusate [Colace] 100 mg PO BID PRN #10 02/07/17 [Rx] HYDROcodone/Acet 5/325 mg [[place] 5-325 mg] 1 tab PO Q6H PRN #15 tab 02/07/17 [Rx ] Allergies/Adverse Reactions: 3 Allergy/AdvReac Type Severity Reaction Status Date / Time No Known Allergies Allergy Verified 12/02/16 16:41 Date of admission: 02/04/17 14:20 Primary care physician: PCP NONE Consults: 02/04/17 22:39 Consult to Nutrition [CONS] Routine Comment: Consulting Provider: NUTRITION Reason for Dietary Consult: Other Other:: morbid obesity 02/06/17 08:40 Consult to Physical Therapy [CONS] Routine Comment: Evaluate, develop and implement POC Reason for Consult: discharge planning relating to shoulder OT [Consult to Occupational Therapy] [CONS] Routine Comment: Evaluate, develop and implement POC Reason for Consult: discharge planning relating to shoulder Discharging clinician: Shu Hunter Anticipated date of discharge: 02/07/17 - Patient Status Disposition: Home, Self-Care Condition: Good Functional capacity at discharge: independent ambulation Overall status at discharge: patient is back to baseline - Discharge Instructions Follow Up With: Patricia Hidalgo, DRYWALL CONTRACTOR [Advanced Practice Nurse] - Additional Instructions: Please follow up with your primary care physician within one week after your discharge from the hospital. Please obtain the provided lab work prior to your appointment with your primary care physician to monitor your kidney function. Please refrain from any NSAID (Ibuprofen, advil, aleve, toradol) use until your follow up with your primary care physician and improvement in your kidney function Please continue oral antibiotic as prescribed. Follow up with orthopedic surgery within one to two weeks after your discharge from the hospital. Resume all your home medications as prescribed by your primary care physician. - Diet and Activity Activity: increase activity as tolerated Diet: low salt diet Hospital course: Mr. Heller is a 46 year old male with PMH of hypertension and morbid obesity who presented to the ER for evaluation of severe right shoulder pain. He was also noted to have a UTI for which he was started on abx. He was followed by orthopedic surgery and underwent joint aspiration as there was a concern for septic arthritis. His joint aspiration was negative for any infectious etiology and his symptoms were contributed to arthritis. His pain improved with NSAID use however he was noted to develop MERVAT. NSAID use was discontinued and renal function was monitored. Renal function is improving and patient is reporting improvement in right shoulder pain. He is hemodynamically stable and will be discharged to home with follow up with PCP and orthopedic surgery. He is to continue oral abx for UTI. He is to refrain from using any NSAIDs until his follow up with his PCP. patient demonstrates understanding of his diagnosis and agrees with the discharge care and plan. - Time Spent with Patient Total time spent providing and/or coordinating discharge services: Less than 30 minutes - Constitutional Vitals: Temp Pulse Resp BP Pulse Ox 98.6 F 94 16 136/88 96 02/07/17 07:36 02/07/17 07:36 02/07/17 07:36 02/07/17 07:36 02/07/17 07:36 General appearance: Present: A&O X 3, morbidly obese, pleasant, no acute distress - Head Head exam: Present: atraumatic, normocephalic - Eye Eye exam: Present: conjuntiva pink, sclera anicteric - Respiratory Respiratory exam: Present: CTAB. Absent: accessory muscle use, rales, rhonchi, wheezes - Cardiovascular Cardiovascular exam: Present: RRR, +S1, +S2. Absent: diastolic murmur, gallop, rubs, systolic murmur - GI/Abdominal GI/Abdominal exam: Present: normal bowel sounds, soft, no peritoneal signs. Absent: distended, tenderness - Extremities Exam Extremities exam: Present: warm, radial pulses palpable and symmetrical. Absent : calf tenderness - Neurological Exam Neurological exam: Present: alert, oriented X3 - Psychiatric Psychiatric exam: Present: normal affect, normal mood - VTE Documentation of Mechanical Device: Graduated compression elastic hosiery
== END 2017-02-07 11:15 | disposition home or self-care (01) ==
LOC: 3ANU 08:53 → EMEROO 08:53 → SUATTDRO 14:20 → 3ANU 15:27
PROVIDERS: ADMIT Internal Medicine; ATTEND Internal Medicine
PROC: IRFLUID (2017-02-04 15:30)